=== PATIENT | female | born 1950 | race Caucasian/White ===

== ENCOUNTER 2019-07-31 09:30 | Outpatient (CLI) | payer MEDICARE, SELFPAY ==
--- NOTE | ~2019-07-31 | MM_ITS ---
EXAMINATION: MM screening [facility] BI w irene HISTORY: Screening mammogram TECHNIQUE: Craniocaudal and mediolateral oblique 3-D tomosynthesis images were obtained and synthetic 2-D images were generated. CAD analysis was submitted and interpreted. COMPARISON: Comparison to multiple prior studies sequentially, with oldest reviewed study dated 05/2014. BREAST PARENCHYMAL COMPOSITION: There are scattered areas of fibroglandular density. FINDINGS: There is no evidence of suspicious mass, calcification, or architectural distortion to sugg est malignancy in either breast. There has been no suspicious interval change. IMPRESSION: 1. No mammographic evidence of malignancy. 2. Recommend routine screening mammography in one year. BI-RADS Category 1: Negative Reviewed, dictated and finalized at location A.
== END 2019-07-31 09:31 | disposition home or self-care (01) ==
PROVIDERS: PCP Family Medicine; Visit Provider Family Medicine
DX: Z12.31 Encounter for screening mammogram for malignant neoplasm of breast (principal)
CPT/HCPCS: 77063; 77067

== ENCOUNTER 2020-06-10 07:45 | Outpatient (CLI) | payer MEDICARE, SELFPAY ==
[2020-06-10 08:19] LABS: Alanine Aminotransferase 16 U/L (4-35); Albumin Level 4.2 g/dL (3.5-5.1); Alkaline Phosphatase 56 U/L (38-126); Anion Gap 4 mmol/L (8-16); Aspartate Amino Transferase 26 U/L (14-36); Bilirubin,Total 0.6 mg/dL (0.2-1.3); Blood Urea Nitrogen 16 mg/dL (7-17); Calcium 9.1 mg/dL (8.4-10.2); Carbon Dioxide 29 mmol/L (22-30); Chloride 106 mmol/L (98-107); Cholesterol 201 mg/dL (0-200); Estimated Glomerular Filt Rate > 60; Glucose 98 mg/dL (65-105); HDL Direct 80 mg/dL; Potassium 4.1 mmol/L (3.4-5.0); Sodium 139 mmol/L (137-145); Triglycerides 107 mg/dL (<150)
[2020-06-10 08:30] LABS: LDL Cholesterol Direct 97 mg/dL
== END 2020-06-10 07:46 | disposition home or self-care (01) ==
PROVIDERS: PCP Physician Assistant; Visit Provider Physician Assistant
DX: I10 Essential (primary) hypertension (principal); Z00.00 Encounter for general adult medical examination without abnormal findings
CPT/HCPCS: 36415; 80053; 80061; 82607; 82746; 84443

== ENCOUNTER 2020-08-13 08:42 | Outpatient (CLI) | payer MEDICARE, SELFPAY ==
--- NOTE | ~2020-08-13 | MM_ITS ---
EXAMINATION: MM screening [facility] BI w irene HISTORY: Screening TECHNIQUE: Craniocaudal and mediolateral oblique 3-D tomosynthesis images were obtained and synthetic 2-D images were generated. CAD analysis was submitted and interpreted. COMPARISON: No prior mammogram is available for comparison at this institution. BREAST PARENCHYMAL COMPOSITION: There are scattered areas of fibroglandular density. FINDINGS: There is no evidence of suspicious mass, calcification, or architectural distortion to sugg est malignancy in either breast. There has been no suspicious interval change. IMPRESSION: 1. No mammographic evidence of malignancy. 2. Recommend routine screening mammography in one year. BI-RADS Category 1: Negative Reviewed, dictated and finalized at location A.
--- NOTE | ~2020-08-13 | DEXA_ITS ---
Bone Density Report Name: Nicol Lee Age: 70 Sex: Female Ethnicity: White Date of : 1950 Indication: osteopenia; height loss; Referring Provider: AFSANEH DAVENPORT Study: Bone densitometry was performed. Exam Date: August 13, 2020 Accession number: [id number] Bone Density: Region BMD T-score Z-score Classification AP Spine (L1-L4) 0.837 -1.9 0.2 Osteopenia Femoral Neck (Left) 0.693 -1.4 0.4 Osteopenia Total Hip (Left) 0.832 -0.9 0.6 Normal Total Hip Bilateral Avg 0.864 -0.6 0.9 Normal Femoral Neck (Right) 0.761 -0.8 1.0 Normal Total Hip (Right) 0.895 -0.4 1.1 Normal World Health Organization criteria for BMD impression classify patients as: Normal (T-score at or above -1.0), Osteopenia (T-score between -1.0 and -2.5), or Osteoporosis (T-score at or below -2.5). 10-year Fracture Risk(1): Major Osteoporotic Fracture 9.5% Hip Fracture 1.2% Reported Risk Factors: [place] (), Neck BMD=0.693, BMI=27.5 (1) FRAX(R) Version 3.08. Fracture probability calculated for an untreated patient. Fracture probability may be lower if the patient has received treatment. Previous Exams: Region Exam Age BMD T-score BMD Change BMD Change Date g/cm2 vs Baseline vs Previous AP Spine(L1-L4) 08/13/2020 70 0.837 -1.9 -0.072(-7.9%)# -0.002(-0.2%)# 07/17/2017 67 0.839 -1.9 -0.070(-7.7%)# -0.031(-3.6%)* 09/21/2014 64 0.870 -1.6 -0.039(-4.3%)# 0.003(0.3%)# 01/05/2012 61 0.867 -1.6 -0.041(-4.6%)# 0.002(0.3%)# 11/19/2009 59 0.865 -1.7 -0.044(-4.8%)* 0.018(2.1%) 11/14/2007 57 0.847 -1.8 -0.062(-6.8%)* -0.040(-4.5%)* 06/05/2005 55 0.887 -1.5 -0.021(-2.4%) -0.021(-2.4%) 08/01/2002 52 0.909 -1.3 Total Hip(Left) 08/13/2020 70 0.832 -0.9 -0.015(-1.8%)# -0.024(-2.8%)# 07/17/2017 67 0.856 -0.7 0.009(1.0%)# 0.018(2.1%) 09/21/2014 64 0.838 -0.8 -0.009(-1.1%)# -0.030(-3.5%)# 01/05/2012 61 0.869 -0.6 0.021(2.5%)# 0.042(5.0%)# 11/19/2009 59 0.827 -0.9 -0.020(-2.4%) 0.007(0.9%) 11/14/2007 57 0.820 -1.0 -0.027(-3.2%) -0.008(-1.0%) 06/05/2005 55 0.828 -0.9 -0.019(-2.2%) -0.019(-2.2%) 08/01/2002 52 0.847 -0.8 Total Hip(Right) 08/13/2020 70 0.895 -0.4 0.052(6.2%)# 0.024(2.8%)# 07/17/2017 67 0.871 -0.6 0.028(3.3%)# 0.016(1.9%) 09/21/2014 64 0.855 -0.7 0.012(1.4%)# 0.010(1.2%)# 01/05/2012 61 0.845 -0.8 0.002(0.2%)# -0.017(-1.9%)# 11/19/2009 59 0.861 -0.7 0.018(2.2%) 0.005(0.5%) 11/14/2007 57 0.857 -0.7 0.014(1.6%) 0.015(1.8%) 06/05/2005 55 0.842 -0.8 -0.001(-0.2%) -0.001(-0.
== END 2020-08-13 08:43 | disposition home or self-care (01) ==
PROVIDERS: PCP Physician Assistant; Visit Provider Obstetrics & Gynecology
DX: Z12.31 Encounter for screening mammogram for malignant neoplasm of breast (principal); Z78.0 Asymptomatic menopausal state; M85.89 Other specified disorders of bone density and structure, multiple sites
CPT/HCPCS: 77063; 77067; 77080

== ENCOUNTER 2020-08-19 11:00 | Outpatient (CLI) | payer MEDICARE, SELFPAY | END 2020-08-19 11:01 | disposition home or self-care (01) | PROVIDERS: PCP Physician Assistant; Visit Provider Obstetrics & Gynecology | DX: Z78.0 Asymptomatic menopausal state (principal); M85.89 Other specified disorders of bone density and structure, multiple sites | CPT/HCPCS: 36415; 82306 ==

== ENCOUNTER 2020-12-04 11:45 | Emergency (ER) | payer MEDICARE, SELFPAY ==
[2020-12-04 11:50] VITALS: BP 174/93; PULSE 78; RESP 18; TEMP 36.9; O2SAT 98
--- NOTE | 2020-12-04 12:09 | ED.SKABFB ---
HPI - Skin/Abscess/Foreign Bdy General Chief complaint: Skin/Abscess/Foreign Body Stated complaint: multiple insect stings Source: patient and family Mode of arrival: ambulatory Limitations: no limitations History of Present Illness HPI narrative: this is a 70-year-old female that presents with multiple hornet stings to her lower extremities, currently no throat irritation or throat closing, no shortness of breath no audible wheezing no nausea or vomiting no abdominal pain no fever chills. Patient cut stopping by hornets lower extremities [id number] ago has never had an allergic anaphylactic reaction. Patient did take Benadryl [id number] prior to arrival. complaint: rash Onset (ago): hour(s) Location: LLE and RLE Severity: moderate Quality: burning Related Data Home Medications Medication Instructions Recorded Confirmed calcium carbonate 500 mg calcium 2,000 mg PO DAILY 02/11/19 12/04/20 (1,250 mg) tablet omega 3,6,9 combination no.7 92 mg 2,060 mg PO DAILY 02/11/19 12/04/20 (43 mg-22 [id number]) chew tablet turmeric root extract 500 mg 1,950 mg PO BID 02/11/19 12/04/20 capsule cholecalciferol (vitamin D3) 125 5,000 unit PO 3XW cap 06/01/20 12/04/20 mcg (5,000 unit) capsule vitamin E (dl, acetate) 180 mg 400 unit PO DAILY 06/01/20 12/04/20 (400 unit) capsule Allergies Allergy/AdvReac Type Severity Reaction Status Date / Time Sulfa (Sulfonamide Allergy Severe Rash Verified 12/04/20 12:03 Antibiotics) lisinopril AdvReac Severe Rash Verified 12/04/20 12:03 Review of Systems Review of Systems: All systems reviewed & are unremarkable except as noted in HPI and below PMFSH Past Medical History Medical History Hypertension Osteoarthritis Osteoarthritis of left knee Tear of lateral meniscus of left knee Surgical History Surgical History History of tonsillectomy Family History Family History Grandparent Diabetes mellitus Sibling Family history of osteoporosis Family history of drug dependence Family history of alcoholism Family history of lupus erythematosus Patient's brother is Hypertension Patient's sister is in good health Father Family history of congestive heart failure Family history of cardiovascular disease, Onset Age: 66 Hypertension Mother Family history of congestive heart failure Family history of cardiovascular disease Diabetes mellitus Hypertension Patient's mother is in good health Family history of arthritis Social History Social History Smoking status: Former smoker Second hand tobacco smoke exposure: No Smoking end date: 03/26/81 Alcohol intake: current Alcohol use details: Occasional. Substance use: never Substance use type: does not use Gender identity (if verbalized by the patient): Female Exam Const: General: no acute distress and alert Orientation/consciousness: patient oriented x3 HENMT: Head: normal to inspection Eyes: Conjunctivae: conjunctivae normal Pupils: Equal, round and reactive pupils present EOM: EOMs intact bilaterally Direct Ophthalmoscopy: no photophobia Neck: Neck: normal visual inspection, no lymphadenopathy and no meningeal signs Chest: Chest palpation & inspection: normal inspection of the chest Resp: Effort & Inspection: normal respiratory effort Cardio: Rate: regular rate Rhythm: regular rhythm GI: Auscultation: normal bowel sounds : General: Yes no CVA tenderness Back/Spine/Pelvis: Back: no CVA tenderness Skin: Other: Multiple areas and lower extremities with some area of erythema with a central punctate staining lesion itchy and tender to palpation Neuro: General: patient oriented x3, moves all extremities and no mening
[2020-12-04] MEDS: methylPREDNISolone ACETATE 40 MG/ML VIAL 80 MG IM (12:15)
[2020-12-04 12:35] VITALS: BP 155/68; PULSE 64; RESP 16; TEMP 36.7; O2SAT 98
== END 2020-12-04 12:35 | disposition home or self-care (01) ==
PROVIDERS: Emergency Provider Emergency Medicine
DX: S80.869A Insect bite (nonvenomous), unspecified lower leg, initial encounter (principal); T78.40XA Allergy, unspecified, initial encounter; W57.XXXA Bitten or stung by nonvenomous insect and other nonvenomous arthropods, initial encounter
CPT/HCPCS: 96372; 99283; J1030

== ENCOUNTER 2021-07-01 07:22 | Outpatient (CLI) | payer MEDICARE, SELFPAY ==
--- NOTE | ~2021-07-01 | XR_ITS ---
EXAMINATION: XR hip RT 2V w AP pelvis DATE: 07/01/2021 07:56 INDICATION: Right hip pain. TECHNIQUE: An anteroposterior view of the pelvis and 2 views of right hip were obtained. COMPARISON: Pelvis and left hip radiographs 02/18/2019 FINDINGS: Bone alignment is normal. No fracture. The hip joint spaces are normal. IMPRESSION: 1. Normal hips. Reviewed, dictated and finalized at location A. IMPRESSION: 1. Normal hips.
[2021-07-01 07:44] LABS: Basophils Absolute Auto 0.1 K/mm3 (0.0-0.1); Basophils Percent Auto 0.9 % (0.2-1.2); Eosinophils Absolute Auto 0.1 K/mm3 (0-0.3); Eosinophils Percent Auto 1.5 % (0-4.4); Hematocrit 39.6 % (37.0-47.0); Hemoglobin 12.5 g/dL (12.0-15.0); Immature Granulocyte Absolute 0.05 K/mm3 (0.00-0.031); Immature Granulocyte Percent A 0.6 % (0-0.5); Lymphocytes Absolute Auto 2.65 K/mm3 (0.9-3.2); Mean Corpuscular HGB Conc 31.6 g/dl (32-36); Mean Corpuscular Hemoglobin 27.8 pg (26-34); Mean Corpuscular Volume 88.2 fl (80-100); Mean Platelet Volume 8.5 fl (7.4-10.4); Monocytes Absolute Auto 0.7 K/mm3 (0.1-0.6); Neutrophils Absolute Auto 4.4 K/mm3 (1.3-6.7); Platelet Count Result 399 k/mm3 (150-375); Red Blood Count 4.49 M/mm3 (4.2-5.4); Red Cell Distribution Width 14.3 % (11.5-14.5)
[2021-07-01 07:58] LABS: Alanine Aminotransferase 16 U/L (4-35); Albumin Level 4.2 g/dL (3.5-5.1); Alkaline Phosphatase 50 U/L (38-126); Anion Gap 4 mmol/L (8-16); Aspartate Amino Transferase 23 U/L (14-36); Bilirubin,Total 0.6 mg/dL (0.2-1.3); Blood Urea Nitrogen 19 mg/dL (7-17); Calcium 8.6 mg/dL (8.4-10.2); Carbon Dioxide 27 mmol/L (22-30); Chloride 105 mmol/L (98-107); Cholesterol 229 mg/dL (0-200); Estimated Glomerular Filt Rate > 60; Glucose 96 mg/dL (65-110); HDL Direct 103 mg/dL; Potassium 3.9 mmol/L (3.4-5.0); Sodium 136 mmol/L (137-145); Triglycerides 94 mg/dL (<150)
[2021-07-01 08:09] LABS: LDL Cholesterol Direct 72 mg/dL
[2021-07-01 08:23] LABS: Vitamin D 25 Hydroxy 52.8 ng/mL
[2021-07-01 08:49] LABS: Vitamin B12 > 1000.0 pg/mL (239-931)
== END 2021-07-01 07:23 | disposition home or self-care (01) ==
PROVIDERS: PCP Family Medicine; Visit Provider Family Medicine
DX: E53.8 Deficiency of other specified B group vitamins (principal); E55.9 Vitamin D deficiency, unspecified; I10 Essential (primary) hypertension; E78.2 Mixed hyperlipidemia; Z00.00 Encounter for general adult medical examination without abnormal findings; R53.83 Other fatigue
CPT/HCPCS: 36415; 73502; 80053; 80061; 82306; 82607; 84443; 85025

== ENCOUNTER 2021-07-27 07:27 | Outpatient (CLI) | payer MEDICARE, SELFPAY ==
--- NOTE | ~2021-07-27 | CT_ITS ---
EXAMINATION: CT abdomen pelvis w con INDICATION: Right lower quadrant pain TECHNIQUE: Computed tomographic images of the abdomen and pelvis were obtained after the administrati on of 100 cc of Omnipaque 350 intravenous contrast. The dose-length product (DLP) was 497.73 mGy-cm. Automated exposure control and iterative reconstruction technique were employed. COMPARISON: None available FINDINGS: There is a large hiatal hernia with organoaxial volvulus. Mild atelectasis is noted in the visualized lung bases. The heart size is normal. The liver, spleen, pancreas, gallbladder, and adrena l glands are normal. The right kidney is unremarkable. There is a subtle area of decreased perfusion in the left mid kidney. The appendix is normal. No pathologically enlarged abdominal or pelvic lymph nodes are identified. There is no free intraperitoneal gas or evidence of bowel obstruction. Colonic diverticulosis is present without evidence of diverticulitis. There is mild lumbar spondylosis. A sma ll fat-containing umbilical hernia is noted. IMPRESSION: 1. No CT correlate for the patient's symptoms. 2. Large hiatal hernia with organoaxial volvulus. 3. Focal area of diffusion in the left mid kidney which could reflect scarring versus possible infect ion. Correlation with urinalysis is recommended. Reviewed, dictated and finalized at location A. IMPRESSION: 1. No CT correlate for the patient's symptoms. 2. Large hiatal hernia with organoaxial volvulus. 3. Focal area of diffusion in the left mid kidney which could reflect scarring versus possible infection. Correlation with urinalysis is recommended.
== END 2021-07-27 07:28 | disposition home or self-care (01) ==
PROVIDERS: PCP Family Medicine; Visit Provider Physician Assistant Medical
DX: R10.31 Right lower quadrant pain (principal); K44.9 Diaphragmatic hernia without obstruction or gangrene
CPT/HCPCS: 74177; Q9967

== ENCOUNTER 2021-07-30 12:55 | Outpatient (CLI) | payer MEDICARE, SELFPAY ==
[2021-07-30 14:02] LABS: Appearance Urine Cloudy (Clear); Bilirubin Urine Negative (Negative); Color Urine Yellow (Yellow); Glucose Urine UA Negative (Negative); Ketones Urine 1+ mg/dL (Negative); Leukocyte Esterase Ur Negative LEU/UL (NEGATIVE); Nitrate Urine Negative (Negative); Protein Urine Negative (Negative); Urobilinogen Urine 0.2 mg/dL (<2.0)
[2021-07-30 14:04] LABS: Mucus Urine Rare /lpf; RBC Urine 0-2 /hpf (0-2); Squamous Epithelial Cell Urine Rare /hpf (Few); WBC Urine 0-3 /hpf (0-3)
[2021-07-30 14:18] LABS: Add Urine Microscopic? YES; Blood Urine Trace-Intact (Negative)
== END 2021-07-30 12:56 | disposition home or self-care (01) ==
LOC: ANHLAB 12:59
PROVIDERS: PCP Family Medicine; Visit Provider Physician Assistant Medical
DX: R39.9 Unspecified symptoms and signs involving the genitourinary system (principal)
CPT/HCPCS: 81001; 87086

== ENCOUNTER 2021-09-22 08:48 | Outpatient (CLI) | payer MEDICARE, SELFPAY ==
--- NOTE | ~2021-09-22 | XR_ITS ---
EXAMINATION: XR UGIAC w barium swallow DATE: 09/22/2021 09:27 INDICATION: Diaphragmatic hernia without obstruction. TECHNIQUE: Thick barium contrast with gas effervescent crystals were administered orally. Fluoroscop ic images of the esophagus, stomach, and proximal duodenum were obtained in various projections. The reafter, overhead images of the abdomen were performed. 0.2 minutes of fluroscopy. DAP 6.5. FINDINGS: No prior studies for comparison. The esophagus is normal in caliber, without mucosal lesions or strictures. There is normal esophagea l peristalsis. There is a large hiatal hernia with organoaxial volvulus. No gastroesophageal reflux witnessed during the course of the study. The gastric folds are normal. The proximal duodenum is also normal in appearance. IMPRESSION: 1. Large hiatal hernia with organoaxial volvulus. Reviewed, dictated and finalized at location A.
== END 2021-09-22 08:49 | disposition home or self-care (01) ==
PROVIDERS: PCP Family Medicine; Visit Provider Internal Medicine Gastroenterology
DX: K44.9 Diaphragmatic hernia without obstruction or gangrene (principal)
CPT/HCPCS: 74246

== ENCOUNTER 2021-10-10 00:26 | Day surgery (SDC) | payer MEDICARE, SELFPAY ==
[2021-09-29 10:16] VITALS: BMI 29.1
--- NOTE | 2021-10-07 13:38 | PM.HPGS ---
History of Present Illness History of Present Illness Consent: Risks, benefits, and alternatives have been discussed and questions answered. Patient agrees to proceed with procedure. Chief complaint: Hiatal Hernia Narrative: Nicol Lee is a 71 year old female who had a CT scan of the abdomen and pelvis.? This showed a large hiatal hernia with what appeared to be organaxial volvulus.? surprisingly she has no symptoms.? I personally reviewed her CT scan and jared a diagram for her.? I showed her that it appears that about 1/2 of her stomach is above the diaphragm.? The radiologist is concerned that there was rotation, or volvulus of the herniated stomach.? Review of Systems Review of Systems: All systems reviewed & are unremarkable except as noted in HPI and below PMFSH Past Medical History Medical History Groin pain, chronic, right Hiatal hernia Hypertension Osteoarthritis Osteoarthritis of left knee Tear of lateral meniscus of left knee Urinary symptom or sign Surgical History Surgical History History of tonsillectomy Family History Family History Grandparent Diabetes mellitus Sibling Family history of osteoporosis Family history of drug dependence Family history of alcoholism Family history of lupus erythematosus Patient's brother is Hypertension Patient's sister is in good health Father Family history of congestive heart failure Family history of cardiovascular disease, Onset Age: 66 Hypertension Mother Family history of congestive heart failure Family history of cardiovascular disease Diabetes mellitus Hypertension Patient's mother is in good health Family history of arthritis Social History Social History Second hand tobacco smoke exposure: No Smoking end date: 03/26/81 Alcohol intake: current Drinks per week: 6 Alcohol use details: Occasional. Substance use: never Substance use type: does not use Living arrangements: with family Gender identity (if verbalized by the patient): Female Spiritual care concerns: No Meds Home Medications and Allergies Home Medications Medication Instructions Recorded Confirmed Type calcium carbonate 500 mg calcium 2,000 mg PO DAILY 02/11/19 09/29/21 History (1,250 mg) tablet (Calcium 500) omega 3,6,9 combination no.7 92 mg 2,060 mg PO DAILY 02/11/19 09/29/21 History (43 mg-22 [id number]) chew tablet turmeric root extract 500 mg 1,950 mg PO BID 02/11/19 09/29/21 History capsule cholecalciferol (vitamin D3) 125 5,000 unit PO 3XW 06/01/20 09/29/21 History mcg (5,000 unit) capsule vitamin E (dl, acetate) 180 mg 400 unit PO DAILY 06/01/20 09/29/21 History (400 unit) capsule ascorbate calcium (vitamin C) 500 500 mg PO DAILY 02/07/21 09/29/21 History mg tablet aspirin 81 mg tablet,delayed 81 mg PO DAILY 02/07/21 09/29/21 History release glucosamine sulf dipotas 750 1,200 tablet PO 2XD 02/07/21 09/29/21 History mg-Boswellia tae extract 50 mg tablet lactobacillus combination no.9 4 4,000 mmu cells PO DAILY 02/07/21 09/29/21 History billion cell capsule (Adult 50 Plus Probiotic) mecobalamin (vitamin B12) 5,000 5,000 mcg PO DAILY 02/07/21 09/29/21 History mcg lozenge losartan 100 mg tablet 100 mg PO DAILY #90 tabs 06/13/21 09/29/21 Rx amlodipine 10 mg tablet 10 mg PO DAILY #30 tabs 07/14/21 09/29/21 Rx Allergies Allergy/AdvReac Type Severity Reaction Status Date / Time Sulfa (Sulfonamide Allergy Severe Rash Verified 10/10/21 06:24 Antibiotics) lisinopril AdvReac Severe Rash Verified 10/10/21 06:24 Exam Const: General: alert Orientation/consciousness: patient oriented x3 Resp: Auscultation: clear to auscultation bilaterally Cardio:
[2021-10-10 06:25] VITALS: BP 160/77; PULSE 70; RESP 16; TEMP 36.9; O2SAT 100; BMI 28.0
[2021-10-10] MEDS: LACTATED RINGERS 1,000 ML 150 ML IV CONT (06:28)
--- NOTE | 2021-10-10 07:14 | WPDANESEPPF ---
Anes - Initial Pre Proc Eval Procedure: Operation Date: 10/10/21 07:30 Proposed Procedures p Esophagogastroduodenoscopy - Luis De La Rosa MD Date/Time: 10/10/21 07:14 Surgeon: Luis De La Rosa MD Pre Op Diagnosis: Hiatal Hernia Patient Data Age: 71 Gender: F Height: 1.63 m Weight: 74 kg Last Vital Signs Temp 98.4 F 10/10/21 06:25 Pulse 70 10/10/21 06:25 Resp 16 10/10/21 06:25 BP 160/77 H 10/10/21 06:25 Pulse Ox 100 10/10/21 06:25 O2 Del Method Room Air 10/10/21 06:25 Allergies Allergy/AdvReac Type Severity Reaction Status Date / Time Sulfa (Sulfonamide Allergy Severe Rash Verified 10/10/21 06:24 Antibiotics) lisinopril AdvReac Severe Rash Verified 10/10/21 06:24 Home Medications Medication Instructions Recorded Confirmed Type calcium carbonate 500 mg calcium 2,000 mg PO DAILY 02/11/19 09/29/21 History (1,250 mg) tablet (Calcium 500) omega 3,6,9 combination no.7 92 mg 2,060 mg PO DAILY 02/11/19 09/29/21 History (43 mg-22 [id number]) chew tablet turmeric root extract 500 mg 1,950 mg PO BID 02/11/19 09/29/21 History capsule cholecalciferol (vitamin D3) 125 5,000 unit PO 3XW 06/01/20 09/29/21 History mcg (5,000 unit) capsule vitamin E (dl, acetate) 180 mg 400 unit PO DAILY 06/01/20 09/29/21 History (400 unit) capsule ascorbate calcium (vitamin C) 500 500 mg PO DAILY 02/07/21 09/29/21 History mg tablet aspirin 81 mg tablet,delayed 81 mg PO DAILY 02/07/21 09/29/21 History release glucosamine sulf dipotas 750 1,200 tablet PO 2XD 02/07/21 09/29/21 History mg-Boswellia tae extract 50 mg tablet lactobacillus combination no.9 4 4,000 mmu cells PO DAILY 02/07/21 09/29/21 History billion cell capsule (Adult 50 Plus Probiotic) mecobalamin (vitamin B12) 5,000 5,000 mcg PO DAILY 02/07/21 09/29/21 History mcg lozenge losartan 100 mg tablet 100 mg PO DAILY #90 tabs 06/13/21 09/29/21 Rx amlodipine 10 mg tablet 10 mg PO DAILY #30 tabs 07/14/21 09/29/21 Rx Patient hx anesthesia problems: none Family hx anesthesia problems: none Results Review: All pre-operative results and documents have been reviewed as part of the pre-operative evaluation. [facility] Past Medical History Medical History Groin pain, chronic, right Hiatal hernia Hypertension Osteoarthritis Osteoarthritis of left knee Tear of lateral meniscus of left knee Urinary symptom or sign Surgical History Surgical History History of tonsillectomy Family History Family History Grandparent Diabetes mellitus Sibling Family history of osteoporosis Family history of drug dependence Family history of alcoholism Family history of lupus erythematosus Patient's brother is Hypertension Patient's sister is in good health Father Family history of congestive heart failure Family history of cardiovascular disease, Onset Age: 66 Hypertension Mother Family history of congestive heart failure Family history of cardiovascular disease Diabetes mellitus Hypertension Patient's mother is in good health Family history of arthritis Social History Social History Second hand tobacco smoke exposure: No Smoking end date: 03/26/81 Alcohol intake: current Drinks per week: 6 Alcohol use details: Occasional. Substance use: never Substance use type: does not use Living arrangements: with family Gender identity (if verbalized by the patient): Female Spiritual care concerns: No Anes - Eval Final PreProcedure Day of Procedure 10/10/21 07:14 Patient weight: normal Heart: regular rate and rhythm Lungs: clear to auscultation Airway: Mallampati scale class II Neurological: alert and oriented Last oral intake: >/= 8 hours
[2021-10-10 07:41] VITALS: BP 113/76; PULSE 74; RESP 25; O2SAT 96
[2021-10-10 07:51] VITALS: BP 131/83; PULSE 66; RESP 18; O2SAT 98
[2021-10-10 08:01] VITALS: BP 140/89; PULSE 77; RESP 18; O2SAT 100
== END 2021-10-10 08:14 | disposition home or self-care (01) ==
PROVIDERS: PCP Family Medicine; Visit Provider Internal Medicine Gastroenterology
PROC: 0DJ08ZZ Inspection of Upper Intestinal Tract, Via Natural or Artificial Opening Endoscopic (ICD-10-PCS; CPT 43235; principal; 2021-10-10 07:30)
DX: K21.00 Gastro-esophageal reflux disease with esophagitis, without bleeding (principal); K44.9 Diaphragmatic hernia without obstruction or gangrene; Z79.82 Long term (current) use of aspirin; I10 Essential (primary) hypertension; M19.90 Unspecified osteoarthritis, unspecified site
CPT/HCPCS: 43239; 87081; 88305; J2704; J7120

== ENCOUNTER 2021-12-16 08:11 | Outpatient (CLI) | payer MEDICARE, SELFPAY ==
--- NOTE | ~2021-12-16 | MM_ITS ---
EXAMINATION: MM screening [facility] BI w irene HISTORY: Screening mammogram TECHNIQUE: Craniocaudal and mediolateral oblique 3-D tomosynthesis images were obtained and synthetic 2-D images were generated. CAD analysis was submitted and interpreted. COMPARISON: 08/13/2020, 07/31/2019, 06/13/2018 BREAST PARENCHYMAL COMPOSITION: There are scattered areas of fibroglandular density. FINDINGS: There is no suspicious mass, calcification, or architectural distortion to suggest malignan cy in either breast. There has been no suspicious interval change. IMPRESSION: 1. No mammographic evidence of malignancy. 2. Recommend routine screening mammography in one year. BI-RADS Category 1: Negative Reviewed, dictated and finalized at location A.
== END 2021-12-16 08:12 | disposition home or self-care (01) ==
LOC: ANHIMG 08:14
PROVIDERS: PCP Family Medicine; Visit Provider Obstetrics & Gynecology
DX: Z12.31 Encounter for screening mammogram for malignant neoplasm of breast (principal)
CPT/HCPCS: 77063; 77067

== ENCOUNTER 2021-12-30 09:35 | Outpatient (CLI) | payer MEDICARE, SELFPAY ==
--- NOTE | ~2021-12-30 | XR_ITS ---
EXAMINATION: XR chest 2V DATE: 12/30/2021 11:15 INDICATION: Hypertension. Preop. TECHNIQUE: Frontal and lateral views of the chest were obtained. COMPARISON: CT abdomen and pelvis 07/27/2021 FINDINGS: A calcified right lung nodule is consistent with old granulomatous disease. There is mild s carring at left lung apex. No pleural effusion or pneumothorax. The heart size is normal. There is a large hiatal hernia. There is mild chronic anterior wedging of multiple vertebral bodies. IMPRESSION: 1. Large hiatal hernia. Reviewed, dictated and finalized at location B. IMPRESSION: 1. Large hiatal hernia.
--- NOTE | 2021-12-30 10:52 | ECG_ITS ---
Measurements Intervals Alexis Rate: 61 P: 7 IL: 161 QRS: -8 QRSD: 78 T: 9 QT: 401 QTc: 406 Interpretive Statements BASELINE ARTIFACT/REDUCED QUALITY ECG SINUS RHYTHM MODERATE VOLTAGE CRITERIA FOR LVH, CONSIDER NORMAL VARIANT [MEETS CRITERIA IN ONE OF: R(aVL), S(V1), R(V5), R(V5/V6)+S(V1)] NO PREVIOUS ECG AVAILABLE FOR COMPARISON Electronically Signed On 12-30-2021 13:49:42 CDT by Tulio Lau M.D.
[2021-12-30 11:10] LABS: Basophils Absolute Auto 0.1 K/mm3 (0.0-0.1); Basophils Percent Auto 1.1 % (0.2-1.2); Eosinophils Absolute Auto 0.2 K/mm3 (0-0.3); Eosinophils Percent Auto 3.4 % (0-4.4); Hematocrit 37.2 % (37.0-47.0); Hemoglobin 11.5 g/dL (12.0-15.0); Immature Granulocyte Absolute 0.01 K/mm3 (0.00-0.031); Immature Granulocyte Percent A 0.2 % (0-0.5); Lymphocytes Absolute Auto 1.94 K/mm3 (0.9-3.2); Lymphocytes Percent Auto 44.5 % (18.3-44.2); Mean Corpuscular HGB Conc 30.9 g/dl (32-36); Mean Corpuscular Hemoglobin 25.3 pg (26-34); Mean Corpuscular Volume 81.8 fl (80-100); Mean Platelet Volume 8.8 fl (7.4-10.4); Monocytes Absolute Auto 0.4 K/mm3 (0.1-0.6); Monocytes Percent Auto 8.5 % (2.6-8.5); Neutrophils Absolute Auto 1.8 K/mm3 (1.3-6.7); Neutrophils Percent Auto 42.3 % (45.5-73.1); Platelet Count Result 318 k/mm3 (150-375); Red Blood Count 4.55 M/mm3 (4.2-5.4); Red Cell Distribution Width 17.3 % (11.5-14.5); White Blood Count 4.4 K/mm3 (4.5-10.0)
[2021-12-30 11:28] LABS: Anion Gap 11 mmol/L (8-16); Blood Urea Nitrogen 15 mg/dL (7-17); Calcium 9.5 mg/dL (8.4-10.2); Carbon Dioxide 26 mmol/L (22-30); Chloride 103 mmol/L (98-107); Estimated Glomerular Filt Rate > 60; Glucose 96 mg/dL (65-110); Potassium 4.6 mmol/L (3.4-5.0); Sodium 140 mmol/L (137-145)
== END 2021-12-30 09:36 | disposition home or self-care (01) ==
LOC: ANHSURGERY 09:43
PROVIDERS: PCP Family Medicine; Visit Provider Surgery
DX: K44.9 Diaphragmatic hernia without obstruction or gangrene (principal)
CPT/HCPCS: 36415; 71046; 80048; 85025; 86850; 86900; 86901; 93005

== ENCOUNTER 2022-01-12 16:01 | Inpatient (IN) | payer MEDICARE, SELFPAY ==
[2021-12-30 09:57] VITALS: BMI 28.3
--- NOTE | 2021-12-30 10:29 | PC.NURSE ---
Report to the Outpatient Waiting Room, entrance under the green pavilion located off [facility], at time __0600 on date _01/11/22 . OR Time: __0800 . Time changes happen often and if your time is changed the preop area will call you the afternoon before. - You and your visitor will be asked to self-screen and do not enter if you have any COVID symptoms. - We encourage only one visitor and NO visitors under age 16 are allowed at this time. Your visitor will receive communication by the phone number that is given day of service. - The patient visitor is requested to social distance or may leave the building when not with patient due to restrictions. - A mask is required within the hospital. Patients may have clear liquids (water, carbonated beverages, clear teas, apple juice) until 3 hours prior to surgery with a maximum of 20 ounces. - No food from midnight until time of surgery - Infants may have breast milk until 4 hours before surgery, infant formula 6 hours prior to surgery. - Children will be allowed to drink immediately following surgery. If applicable, please bring a bottle or sippy cup to assist with drinking. Juice, water, soda, and popsicles are readily available. For infants on formula, please bring formula the day of surgery. Pacifiers are allowed. Take the following medications with a SIP of water the morning of surgery: __AMLODIPINE Medications to discontinue per physician _PT STATES DR MUSTAFA INST. TO HOLD ASPIRIN,FISH OIL,CALCIUM,VIT.E,D3 7 DAYS PRE OP. ALL OTHER VITAMINS AND SUPPLEMENTS 3 DAY PRE OP Date to take last dose_ASPIRIN/VIT 01/03/22 ALL OTHER VIT /SUPP 01/07/22 HIBICLENS SHOWER MORNING OF SURGERY Please no make-up, nail lithuanian, hairspray, perfume, deodorant, or body powder the day of surgery. No jewelry (including any body piercings) or valuables the day of surgery, leave them at home. Please take a shower or bath the night before, or the morning of, surgery with an antibacterial soap. Wear comfortable, loose fitting clothing. Children are encouraged to wear pajamas. - Jewelry must be removed prior to entering the operating room. Rings and piercings that are not removed may be cut off. - The hospital will not accept responsibility for valuables. - Please leave all valuables, including medications, at home the day of surgery. If you are going home after surgery, a licensed hydraulic lift driver must drive you home. - NO public transportation without another adult. - We recommend that an adult stay with you for 24 hours following discharge. - We also recommend that you do not drive, make important decision, drink alcoholic beverages, or take any drugs that were not prescribed by your health care provider for at least 24 hours after your discharge time. Follow any additional instructions given to you from your surgeon. If you or anyone in your household have experienced Covid symptoms in the past week, please notify your surgeon or the nurse liaison at the phone number below for possible testing. VERBAL AND WRITTEN instructions given to __PATIENT and asked if any additional questions and then verbalized understanding. Patient advised to call surgeon office or pre surgery nurse liaison [phone] if any additional questions.
[2021-12-30 10:46] VITALS: BP 162/89; PULSE 58; RESP 18; TEMP 37.1; O2SAT 100
--- NOTE | 2022-01-10 11:27 | PM.IMHP ---
H&P: HPI History of Present Illness Date/Time: 01/10/22 11:27 Chief Complaint: Abdominal pain early satiety Narrative: patient is a 71-year-old woman with a large paraesophageal hiatal hernia. She does have some postprandial pain and has to eat small amounts. She had an EGD with Dr. De La Rosa and large hiatal hernia was found as well as nonerosive reflux disease. She also has early satiety. She is very worried about complications associated with the hiatal hernia as well. After thorough discussion with 2 different office visits, she is taken to surgery now for laparoscopic repair of paraesophageal hiatal hernia. Review of Systems Review of Systems: All systems reviewed & are unremarkable except as noted in HPI and below ( HPI and those items noted below) Constitutional: Constitutional: Denies chills and Denies fever(s) Cardiovascular: Cardiovascular: Denies chest pain, Denies diaphoresis, Denies dyspnea and Denies paroxysmal nocturnal dyspnea Respiratory: Respiratory: Denies chest congestion, Denies cough and Denies dyspnea Integumentary/Breasts: Skin/Breast: Denies lesions and Denies rash PMF Past Medical History Medical History Groin pain, chronic, right Hiatal hernia Hypertension Osteoarthritis Osteoarthritis of left knee Tear of lateral meniscus of left knee Urinary symptom or sign Surgical History Surgical History History of tonsillectomy Family History Family History Grandparent Diabetes mellitus Sibling Family history of osteoporosis Family history of drug dependence Family history of alcoholism Family history of lupus erythematosus Patient's brother is Hypertension Patient's sister is in good health Father Family history of congestive heart failure Family history of cardiovascular disease, Onset Age: 66 Hypertension Mother Family history of congestive heart failure Family history of cardiovascular disease Diabetes mellitus Hypertension Patient's mother is in good health Family history of arthritis Social History Social History Smoking packs per day: 1 Smoking cigarettes per day: 20.0 Years smoked: 5 Smoking pack-years: 5.00 Smoking status: Former smoker Tobacco type: cigarettes Second hand tobacco smoke exposure: No Smoking end date: 03/26/75 Alcohol intake: current Drinks per week: 6 Alcohol use details: Occasional. Substance use: never Substance use type: does not use Gender identity (if verbalized by the patient): Female Spiritual care concerns: No Meds Home Medications and Allergies Home Medications Medication Instructions Recorded Confirmed Type omega 3,6,9 combination no.7 92 mg 2,060 mg PO DAILY 02/11/19 12/30/21 History (43 mg-22 [id number]) chew tablet turmeric root extract 500 mg 1,950 mg PO BID 02/11/19 12/30/21 History capsule cholecalciferol (vitamin D3) 125 5,000 unit PO 3XW 06/01/20 12/30/21 History mcg (5,000 unit) capsule vitamin E (dl, acetate) 180 mg 400 unit PO DAILY 06/01/20 12/30/21 History (400 unit) capsule ascorbate calcium (vitamin C) 500 500 mg PO DAILY 02/07/21 12/30/21 History mg tablet aspirin 81 mg tablet,delayed 81 mg PO DAILY 02/07/21 12/30/21 History release glucosamine sulf dipotas 750 1,200 tablet PO 2XD 02/07/21 12/30/21 History mg-Boswellia tae extract 50 mg tablet lactobacillus combination no.9 4 4,000 mmu cells PO DAILY 02/07/21 12/30/21 History billion cell capsule (Adult 50 Plus Probiotic) mecobalamin (vitamin B12) 5,000 5,000 mcg PO DAILY 02/07/21 12/30/21 History mcg lozenge losartan 100 mg tablet 100 mg PO DAILY #90 tabs 06/13/21 12/30/21 Rx amlodipine 10 mg tablet 10 mg PO DAILY #30 tabs 07/14/21
[2022-01-11] VITALS (17 sets, daily range): BP systolic 105–158; BP diastolic 53–81; PULSE 56–110; RESP 12–22; TEMP 36–37.1; O2SAT 94–100
[2022-01-11] MEDS: ACETAMINOPHEN 500 MG TABLET 1000 MG PO (06:39)
[2022-01-11] MEDS: LACTATED RINGERS 1,000 ML 30 ML IV CONT ×2 (06:45→11:03)
[2022-01-11] MEDS: KETOROLAC 15 MG/ML VIAL (*BKC) IV PUSH (07:08)
--- NOTE | 2022-01-11 07:10 | WPDANESEPPF ---
Anes - Initial Pre Proc Eval Procedure: Operation Date: 01/11/22 07:30 Proposed Procedures p Laparoscopic Repair of Paraesophageal Hiatal Hernia - Ras Fontaine MD Date/Time: 01/11/22 07:10 Surgeon: Ras Fontaine MD Pre Op Diagnosis: Paraesophageal Hiatal Hernia Patient Data Age: 71 Gender: F Height: 1.64 m Weight: 75.4 kg Last Vital Signs Temp 98.8 F 01/11/22 07:04 Pulse 71 01/11/22 07:04 Resp 16 01/11/22 07:04 BP 158/80 H 01/11/22 07:04 Pulse Ox 100 01/11/22 07:04 O2 Del Method Room Air 01/11/22 07:04 Allergies Allergy/AdvReac Type Severity Reaction Status Date / Time Sulfa (Sulfonamide Allergy Severe Rash Verified 01/11/22 06:33 Antibiotics) lisinopril AdvReac Severe Rash Verified 01/11/22 06:33 Home Medications Medication Instructions Recorded Confirmed Type omega 3,6,9 combination no.7 92 mg 2,060 mg PO DAILY 02/11/19 01/11/22 History (43 mg-22 [id number]) chew tablet turmeric root extract 500 mg 1,950 mg PO BID 02/11/19 01/11/22 History capsule cholecalciferol (vitamin D3) 125 5,000 unit PO 3XW 06/01/20 01/11/22 History mcg (5,000 unit) capsule vitamin E (dl, acetate) 180 mg 400 unit PO DAILY 06/01/20 01/11/22 History (400 unit) capsule ascorbate calcium (vitamin C) 500 500 mg PO DAILY 02/07/21 01/11/22 History mg tablet aspirin 81 mg tablet,delayed 81 mg PO DAILY 02/07/21 01/11/22 History release glucosamine sulf dipotas 750 1,200 tablet PO 2XD 02/07/21 01/11/22 History mg-Boswellia tae extract 50 mg tablet lactobacillus combination no.9 4 4,000 mmu cells PO DAILY 02/07/21 01/11/22 History billion cell capsule (Adult 50 Plus Probiotic) mecobalamin (vitamin B12) 5,000 5,000 mcg PO DAILY 02/07/21 01/11/22 History mcg lozenge losartan 100 mg tablet 100 mg PO DAILY #90 tabs 06/13/21 01/11/22 Rx amlodipine 10 mg tablet 10 mg PO DAILY #30 tabs 07/14/21 01/11/22 Rx [id number] tablet 1 tablet PO BID 12/30/21 01/11/22 History Patient hx anesthesia problems: none Family hx anesthesia problems: none Results Review: All pre-operative results and documents have been reviewed as part of the pre-operative evaluation. [facility] Past Medical History Medical History Groin pain, chronic, right Hiatal hernia Hypertension Osteoarthritis Osteoarthritis of left knee Tear of lateral meniscus of left knee Urinary symptom or sign Surgical History Surgical History History of tonsillectomy Family History Family History Grandparent Diabetes mellitus Sibling Family history of osteoporosis Family history of drug dependence Family history of alcoholism Family history of lupus erythematosus Patient's brother is Hypertension Patient's sister is in good health Father Family history of congestive heart failure Family history of cardiovascular disease, Onset Age: 66 Hypertension Mother Family history of congestive heart failure Family history of cardiovascular disease Diabetes mellitus Hypertension Patient's mother is in good health Family history of arthritis Social History Social History Smoking packs per day: 1 Smoking cigarettes per day: 20.0 Years smoked: 5 Smoking pack-years: 5.00 Smoking status: Former smoker Tobacco type: cigarettes Second hand tobacco smoke exposure: No Smoking end date: 03/26/75 Alcohol intake: current Drinks per week: 6 Alcohol use details: Occasional. Substance use: never Substance use type: does not use Living arrangements: with family Gender identity (if verbalized by the patient): Female Spiritual care concerns: No Anes - Eval Final PreProcedure Day of Procedure 01/11/22 07:10 Patie
--- NOTE | 2022-01-11 07:19 | WPDHPUPDATE1 ---
History and Physical Update Update Date/Time: 01/11/22 07:19 History and Physical has been reviewed, including an updated exam of the patient. There are NO changes in the patient's condition. Risks, benefits, and alternatives have been discussed and questions answered. Patient agrees to proceed with procedure.
[2022-01-11] MEDS: ceFAZolin 2 GM/D5W 50 ML 2 GM/50 ML BAG IVPB (07:24)
[2022-01-11] MEDS: BUPIVACAINE/EPINEPHRINE 0.25% 50 ML VIAL INFILTRATE (08:13)
[2022-01-11] MEDS: fentaNYL CITRATE INJ (*CRX) 100 MCG/2 ML VIAL 25 MCG IV PUSH ×6 (11:17→11:58)
[2022-01-11] MEDS: LACTATED RINGERS 1,000 ML 100 ML IV CONT (14:03)
--- NOTE | 2022-01-11 17:25 | W.PM.PROC2 ---
Procedure Note - Detailed Date of Procedure 01/11/22 Pre-op Diagnosis Paraesophageal Hiatal Hernia Post-op Diagnosis Same Procedure Performed Laparoscopic repair paraesophageal hiatal hernia with Jacqueline fundoplication Surgeon Ras Fontaine MD [employer] Chiquita MCKAY Anesthesia General and Local (0.25% Marcaine with epinephrine) Indications Patient was noted by imaging as well as EGD to have a very large paraesophageal hiatal hernia with an element of volvulus. She has some obstructive symptoms as well as early satiety and postprandial pain. She also has reflux symptoms. After thorough discussion, she is taken to surgery now for repair of paraesophageal hiatal hernia. Findings This was a large paraesophageal hiatal hernia, 90% of the stomach was in the mediastinum. No other significant findings were noted. Description of Procedure Patient was taken to surgery and induced into general anesthesia. Murry catheter was placed and prep and drape of the entire abdomen was carried out. Local anesthetic was infiltrated in the midline above the umbilicus. A small incision was made. The varies needle was introduced. Intraperitoneal location was verified by saline drop technique. We insufflated CO2. The abdomen filled readily. The varies needle was removed. A 10 11 trocar was then placed. This was an optical trocar. The camera was positioned and we were clearly in the peritoneal cavity. I then made another incision just to the right side of the xiphoid below the right rib margin. I introduced the Pérez retractor and attempted to elevate the lateral segment of the left lobe of the liver with this. Unfortunately the lateral segment was quite thickened and redundant. While I could expose the hiatus, the anterior aspect of the lateral segment with then dropped down and preclude our visualization of the hiatus. When I moved the retractor more anteriorly, I was unable to expose the hiatus. I abandoned use of the Pérez retractor. We used the disposable liver retractor. I made an additional trocar opening using the same technique but this time a 12 trocar in the right lateral subcostal position. The I also made a 10 11 trocar placement in the left lateral subcostal position. I then elevated the lateral segment of the left lobe of the liver. I was able to use a Ray-Timothy sponge and double it back clipping it to the drape to keep the lateral segment of the left lobe of the liver out of our field with good visualization of the hiatus. Two other 10 11 ports were then placed on the right and left sides of the midline above the initial 10 11 port. We now had good access to the hiatus and were able to proceed with the surgery. The gastrohepatic ligament was located and divided with the LigaSure. Essentially all of the dissection was done either bluntly or with LigaSure dissection. We followed this pad 0 gastric ligament up to the right shanta. I then placed traction and reduced as much of the stomach as possible. I placed additional traction on the lesser omentum and used the LigaSure to divide and enter the mediastinum the hernia sac from the right shanta. This dissection was continued circumferentially up the right shanta and over the anterior midline. I then continued dissection of the hiatal hernia to the patient's left and caudally gently reducing the hernia and the stomach into the abdomen. This continued well and the esophagus came into view. I refocused in the anterior aspect of the hiatus and continued this process. I then looked more posteriorly and was able to dissect and expose the posterior shanta on the right side of the hiatus. With this completed, we then flipped the stomach so that the greater curvature was now anterior and we could place traction on the greater omentum. Again using the LigaSure, I divided the attachment of the greater omentum to the greater curvature of the stomach and entered the lesser sac. We then continued diss
[2022-01-11] MEDS: HYDROcodone/acetaminophen (*CRX) 5-325 MG TABLET 1 TAB PO ×2 (19:48→23:50)
[2022-01-11] MEDS: BENZOCAINE/MENTHOL (*BKC) 18 EA LOZENGE 1 LOZENGE PO (20:35)
--- NOTE | ~2022-01-12 | CT_ITS ---
EXAMINATION: CTA chest PE protocol DATE: 01/13/2022 14:53 INDICATION: Dyspnea. TECHNIQUE: Computed tomography angiography (CTA) of the chest was performed with 100 mL Omnipaque-350 intravenous contrast timed to evaluate the pulmonary arteries. Coronal maximum intensity projection 3D-reconstructions were created by the technologist. Automated exposure control and iterative reconst ruction technique were employed. The dose-length product was 433.98 mGy-cm. COMPARISON: CT abdomen and pelvis 07/27/2021 FINDINGS: There are small pleural effusions. There is mild scarring at the lung apices. There is mild atelectasis in the lungs with a dependent predominance. A calcified right lung nodule and calcified right hilar lymph nodes are consistent with old granulomatous disease. There are changes of fundoplic ation of the stomach. Pneumomediastinum is noted. There is soft tissue gas in the chest wall bilatera lly. There is fluid in the posterior mediastinum in the area of recent surgery. The heart size is nor mal. There are coronary artery calcifications. No pericardial effusion. There is no pulmonary embolus . There is mild chronic anterior wedging of multiple thoracic vertebral bodies. There is mild thoraci c spondylosis. There is upper thoracic dextroscoliosis and lower thoracic levoscoliosis. IMPRESSION: 1. No pulmonary embolus. 2. Small pleural effusions. 3. Surgical changes of recent fundoplication of the stomach including fluid in the posterior mediasti num. Reviewed, dictated and finalized at location A. IMPRESSION: 1. No pulmonary embolus. 2. Small pleural effusions. 3. Surgical changes of recent fundoplication of the stomach including fluid in the posterior mediastinum.
--- NOTE | ~2022-01-12 | XR_ITS ---
EXAMINATION: XR chest 2V DATE: 01/13/2022 12:29 INDICATION: Shortness of breath and hypoxia TECHNIQUE: PA and lateral views of the chest are obtained. COMPARISON: 12/30/2021 FINDINGS: There are minimal airspace opacities of the lung bases. Small pleural effusions are present . There is no pneumothorax. The large hiatal hernia appears to have been surgically reduced. There is severe thoracic spondylosis. There is a small amount of subcutaneous gas in the right chest and abdo lidia wall as well as in the left chest wall IMPRESSION: 1. Small pleural effusions. 2. Bibasilar airspace opacities, consistent with atelectasis versus pneumonia. 3. Gas in the subcutaneous tissues of the chest and right abdomen, likely postsurgical. Reviewed, dictated and finalized at location B. IMPRESSION: 1. Small pleural effusions. 2. Bibasilar airspace opacities, consistent with atelectasis versus pneumonia. 3. Gas in the subcutaneous tissues of the chest and right abdomen, likely posts urgical.
[2022-01-12 02:34] VITALS: BP 126/72; PULSE 66; RESP 16; TEMP 36.7; O2SAT 96
[2022-01-12 05:42] VITALS: BP 136/70; PULSE 60; RESP 16; TEMP 36.6; O2SAT 98
[2022-01-12 05:49] LABS: Hematocrit 30.7 % (37.0-47.0); Hemoglobin 9.7 g/dL (12.0-15.0); Mean Corpuscular HGB Conc 31.6 g/dl (32-36); Mean Corpuscular Hemoglobin 25.2 pg (26-34); Mean Corpuscular Volume 79.7 fl (80-100); Mean Platelet Volume 8.8 fl (7.4-10.4); Platelet Count Result 280 k/mm3 (150-375); Red Blood Count 3.85 M/mm3 (4.2-5.4); Red Cell Distribution Width 16.7 % (11.5-14.5); White Blood Count 6.8 K/mm3 (4.5-10.0)
[2022-01-12 06:00] LABS: Anion Gap 8 mmol/L (8-16); Blood Urea Nitrogen 13 mg/dL (7-17); Calcium 8.4 mg/dL (8.4-10.2); Carbon Dioxide 25 mmol/L (22-30); Chloride 104 mmol/L (98-107); Estimated CRCL calculation 65 ml/min; Estimated Glomerular Filt Rate > 60; Glucose 107 mg/dL (65-110); Potassium 3.9 mmol/L (3.4-5.0); Sodium 137 mmol/L (137-145)
[2022-01-12] MEDS: HYDROcodone/acetaminophen (*CRX) 5-325 MG TABLET 1 TAB PO ×4 (06:16→21:13)
--- NOTE | 2022-01-12 08:00 | WPDANESPN ---
Anes - Prog Note Post-Op Date/Time: 01/12/22 08:00 Cardiovascular status: normal Respiratory status: normal Airway patency: baseline Mental status: baseline Post-Op hydration status: normal Vital Signs: Last Vital Signs Temp 36.6 C 01/12/22 05:42 Pulse 60 01/12/22 05:42 Resp 16 01/12/22 05:42 BP 136/70 01/12/22 05:42 Pulse Ox 98 01/12/22 05:42 O2 Del Method Room Air 01/11/22 20:00 O2 Flow Rate 2 01/11/22 13:30 Pain Score (VAS): 5, sore throat I/O: Intake & Output 01/11/22 01/12/22 01/12/22 23:59 07:59 15:59 Intake Total 60 Output Total 300 150 Balance -240 -150 Laboratory Tests 01/12/22 05:36 01/12/22 05:36 01/12/22 01/12/22 05:36 05:36 WBC 6.8 RBC 3.85 L Hgb 9.7 L Hct 30.7 L MCV 79.7 L MCH 25.2 L MCHC 31.6 L RDW 16.7 H Plt Count 280 MPV 8.8 Sodium 137 Potassium 3.9 Chloride 104 Carbon Dioxide 25 Anion Gap 8 BUN 13 Creatinine 0.70 Estim Creat Clear Calc 65 Estimated GFR > 60 Glucose 107 Calcium 8.4 Post-procedural complaints: none Patient Feedback: Patient satisfied with anesthetic care.
[2022-01-12] MEDS: amLODIPine BESYLATE 5 MG TABLET 10 MG PO (08:25)
[2022-01-12] MEDS: ASPIRIN 81 MG ENTERIC TABLET PO (08:25)
[2022-01-12] MEDS: LOSARTAN POTASSIUM 100 MG TABLET PO (08:26)
[2022-01-12] MEDS: ENOXAPARIN 40 MG/0.4 ML SYRINGE SUB-Q (08:26)
[2022-01-12 13:06] VITALS: BP 108/61; PULSE 66; RESP 18; TEMP 37.1; O2SAT 95
[2022-01-12 14:29] VITALS: O2SAT 93
--- NOTE | 2022-01-12 17:55 | PM.PNGS ---
Progress Note: A&P Assessment and Plan (1) Paraesophageal hiatal hernia: Code(s): K44.9 - Diaphragmatic hernia without obstruction or gangrene Status: Chronic Assessment and Plan: Continues to have fair amount of pain and also some trouble swallowing. Will keep patient on liquids today. Assist with ambulation. Will need to stay in the hospital again today. Recheck again tomorrow. Recheck labs again tomorrow. Overall, doing okay. Subjective Subjective Date/Time Seen: 01/12/22 17:55 Post Op day: 1 Patient reports: still having pain, no flatus, no bowel movement, afebrile and other ( A lot of trouble swallowing, feels like it is in her throat not distal esophagus) Exam Const: General: comfortable, alert and awake Nutritional Appearance: average body habitus GI: Inspection: non-distended and incision ( dry and healing) GI Palp: Yes Firmness to palpation present (GI) and Yes Tenderness to palpation present (GI) ( diffusely, most in epigastrium, appears to be incisional.) Objective Data Vital Signs Vital Signs: Vital Signs - 24 hr 01/11/22 18:50 01/11/22 20:00 01/11/22 22:34 Temperature 36.6 C 36.7 C Pulse Rate 65 72 Respiratory Rate 20 16 Blood Pressure 124/63 153/73 H Pulse Oximetry 97 97 94 Oxygen Delivery Room Air 01/12/22 02:34 01/12/22 05:42 01/12/22 13:06 Temperature 36.7 C 36.6 C 37.1 C Pulse Rate 66 60 66 Respiratory Rate 16 16 18 Blood Pressure 126/72 136/70 108/61 Pulse Oximetry 96 98 95 Oxygen Delivery 01/12/22 14:29 Temperature Pulse Rate Respiratory Rate Blood Pressure Pulse Oximetry 93 Oxygen Delivery Room Air Intake/Output Intake/Output: Intake & Output 01/09/22 01/10/22 01/11/22 01/12/22 23:59 23:59 23:59 23:59 Intake Total 210 1400 Output Total 300 1550 Balance -90 -150 Meds/Results Medications: Active Medications Generic Name Dose Route Start Last Admin Trade Name Freq PRN Reason Stop Dose Admin Acetaminophen 500 mg 01/11/22 12:49 Acetaminophen 500 Mg Tablet PO Q6H PRN Mild Pain (1-3) or Fever Hydrocodone Bitart/Acetaminophen 1 tab 01/11/22 12:49 01/12/22 16:18 Hydrocodone/Acetaminophen (*Crx) 5-325 Mg Tablet PO 1 tab Q4H PRN Administration Pain Rated 4-6 Hydrocodone Bitart/Acetaminophen 1 tab 01/11/22 12:49 Hydrocodone/Acetaminophen (*Crx) 10-325 Mg Tablet PO Q6H PRN Pain Rated 7-10 Amlodipine Besylate 10 mg 01/12/22 09:00 01/12/22 08:25 Amlodipine Besylate 5 Mg Tablet PO 10 mg DAILY KRISHNA Administration Aspirin 81 mg 01/12/22 09:00 01/12/22 08:25 Aspirin 81 Mg Enteric Tablet PO 81 mg DAILY KRISHNA Administration Benzocaine 1 lozenge 01/11/22 19:51 01/11/22 20:35 Benzocaine/Menthol (*Bkc) 18 Ea Lozenge PO 1 lozenge PRN PRN Administration Sore Throat Diphenhydramine HCl 25 mg 01/11/22 12:49 Diphenhydramine Hcl Inj 50 Mg/Ml Vial IV PUSH Q6H PRN Itching Enoxaparin Sodium 40 mg 01/12/22 09:00 01/12/22 08:26 Enoxaparin 40 Mg/0.4 Ml Syringe SUB-Q 40 mg DAILY KRISHNA Administration Ibuprofen 800 mg in 200 mls @ 400 mls/hr 01/11/22 12:49 Caldolor 800 Mg/200 Ml IVPB Q6H PRN Pain Rated 1-3 Losartan Potassium 100 mg 01/12/22 09:00 01/12/22 08:26 Losartan Potassium 100 Mg Tablet PO 100 mg DAILY KRISHNA Administration Morphine Sulfate 2 mg 01/11/22 12:49 Morphine Sulfate (*Crx) 2 Mg/Ml Inj IV PUSH Q2H PRN Pain Rated 4-6 Morphine Sulfate 4 mg 01/11/22 12:49 Morphine Sulfate (*Crx) 4 Mg/Ml Inj IV PUSH Q2H PRN Pain Rated 7-10 Naloxone HCl 0.1 mg 01/11/22 12:49 Naloxone Hcl 0.4 Mg/Ml Vial IV PUSH Q2M PRN Opiate Reversal Ondansetron HCl 4 mg 01/11/22 12:49 Ondansetron Inj 4 Mg/2 Ml Vial IV PUSH Q4H PRN Nausea And Vomiting Labs Labs: Laboratory Results - last 24 hr 01/12/22 01/12/22 05:36 05:36 WBC 6.8 RBC 3.85 L
[2022-01-12] MEDS: ACETAMINOPHEN 500 MG TABLET PO (18:02)
[2022-01-12 20:00] VITALS: PULSE 62; RESP 18; O2SAT 92
[2022-01-12 20:03] VITALS: BP 137/59; PULSE 62; RESP 18; TEMP 36.6; O2SAT 92
[2022-01-13] MEDS: HYDROcodone/acetaminophen (*CRX) 5-325 MG TABLET 1 TAB PO ×4 (00:36→17:59)
[2022-01-13 05:50] LABS: Hematocrit 31.2 % (37.0-47.0); Hemoglobin 9.7 g/dL (12.0-15.0); Mean Corpuscular HGB Conc 31.1 g/dl (32-36); Mean Corpuscular Hemoglobin 25.5 pg (26-34); Mean Corpuscular Volume 81.9 fl (80-100); Mean Platelet Volume 9.2 fl (7.4-10.4); Platelet Count Result 290 k/mm3 (150-375); Red Blood Count 3.81 M/mm3 (4.2-5.4); Red Cell Distribution Width 17.1 % (11.5-14.5)
[2022-01-13 06:03] LABS: Anion Gap 8 mmol/L (8-16); Blood Urea Nitrogen 8 mg/dL (7-17); Calcium 8.3 mg/dL (8.4-10.2); Carbon Dioxide 25 mmol/L (22-30); Chloride 107 mmol/L (98-107); Estimated CRCL calculation 75 ml/min; Estimated Glomerular Filt Rate > 60; Glucose 99 mg/dL (65-110); Potassium 3.4 mmol/L (3.4-5.0); Sodium 140 mmol/L (137-145)
--- NOTE | 2022-01-13 08:02 | PM.PNGS ---
Progress Note: A&P Assessment and Plan (1) Paraesophageal hiatal hernia: Code(s): K44.9 - Diaphragmatic hernia without obstruction or gangrene Status: Chronic Assessment and Plan: noting some dysphagia. Explained to patient how important it is to chew food well, take small bites, eat very slowly. We had discussed this in the office but I re-emphasized this today. Having fairly typical postoperative discomfort which should improve. Wounds are healing well. Labs look good. (2) Hypoxemia requiring supplemental oxygen: Code(s): R09.02 - Hypoxemia; Z99.81 - Dependence on supplemental oxygen Status: Acute Assessment and Plan: Had to have oxygen placed early this morning. May have been associated with sleep but her I&O isalso positive. Will give a dose of Bumex today and also some potassium. Hopefully will resolve and possibly home tomorrow. Subjective Subjective Date/Time Seen: 01/13/22 08:02 Post Op day: 2 Patient reports: still having pain ( more epigastric pain, noticing some dysphagia.), no flatus, no bowel movement, shortness of breath ( Had to have oxygen placed early this morning. Better now and comfortable off oxygen.) and afebrile Review of Systems Review of Systems: All systems reviewed & are unremarkable except as noted in HPI and below ( HPI) Exam Const: General: cooperative, comfortable and awake Nutritional Appearance: average body habitus Orientation/consciousness: No confusion Resp: Effort & Inspection: normal respiratory effort, no cough and not labored Auscultation: crackles ( bases) and breath sounds absent on th left Cardio: Rate: regular rate Rhythm: regular rhythm GI: Inspection: no edema, non-distended and incision ( dry and healing well) GI Palp: Yes Soft to palpation and Yes Tenderness to palpation present (GI) ( epigastrium specifically) Auscultation: normal bowel sounds Objective Data Vital Signs Vital Signs: Vital Signs - 24 hr 01/12/22 13:06 01/12/22 14:29 01/12/22 20:03 Temperature 37.1 C 36.6 C Pulse Rate 66 62 Respiratory Rate 18 18 Blood Pressure 108/61 137/59 L Pulse Oximetry 95 93 92 Oxygen Delivery Room Air Oxygen Flow Rate 01/12/22 20:00 Temperature Pulse Rate 62 Respiratory Rate 18 Blood Pressure Pulse Oximetry 92 Oxygen Delivery Nasal Cannula Oxygen Flow Rate 2 Intake/Output Intake/Output: Intake & Output 01/10/22 01/11/22 01/12/22 01/13/22 23:59 23:59 23:59 23:59 Intake Total 210 1640 Output Total 300 1850 350 Balance -90 -210 -350 Meds/Results Medications: Active Medications Generic Name Dose Route Start Last Admin Trade Name Freq PRN Reason Stop Dose Admin Acetaminophen 500 mg 01/11/22 12:49 01/12/22 18:02 Acetaminophen 500 Mg Tablet PO 500 mg Q6H PRN Administration Mild Pain (1-3) or Fever Hydrocodone Bitart/Acetaminophen 1 tab 01/11/22 12:49 01/13/22 05:31 Hydrocodone/Acetaminophen (*Crx) 5-325 Mg Tablet PO 1 tab Q4H PRN Administration Pain Rated 4-6 Hydrocodone Bitart/Acetaminophen 1 tab 01/11/22 12:49 Hydrocodone/Acetaminophen (*Crx) 10-325 Mg Tablet PO Q6H PRN Pain Rated 7-10 Amlodipine Besylate 10 mg 01/12/22 09:00 01/12/22 08:25 Amlodipine Besylate 5 Mg Tablet PO 10 mg DAILY KRISHNA Administration Aspirin 81 mg 01/12/22 09:00 01/12/22 08:25 Aspirin 81 Mg Enteric Tablet PO 81 mg DAILY KRISHNA Administration Benzocaine 1 lozenge 01/11/22 19:51 01/11/22 20:35 Benzocaine/Menthol (*Bkc) 18 Ea Lozenge PO 1 lozenge PRN PRN Administration Sore Throat Diphenhydramine HCl 25 mg 01/11/22 12:49 Diphenhydramine Hcl Inj 50 Mg/Ml Vial IV PUSH Q6H PRN Itching Enoxaparin Sodium 40 mg 01/12/22 09:00 01/12/22 08:26 Enoxaparin 40 Mg/0.4 Ml Syringe SUB-Q 40 mg DAILY KRISHNA Administration Ibuprofen 800 mg in 200 mls @ 400 mls/hr 01/11/22 12:49 Caldolor 800 Mg/200 Ml IVPB Q6H P
[2022-01-13 08:20] VITALS: BP 121/74; PULSE 64; RESP 16; TEMP 36.6; O2SAT 100
[2022-01-13] MEDS: ASPIRIN 81 MG ENTERIC TABLET PO (09:12)
[2022-01-13] MEDS: amLODIPine BESYLATE 5 MG TABLET 10 MG PO (09:12)
[2022-01-13] MEDS: ENOXAPARIN 40 MG/0.4 ML SYRINGE SUB-Q (09:12)
[2022-01-13] MEDS: BUMETANIDE INJ 1 MG/4 ML VIAL 2 MG IV PUSH (09:12)
[2022-01-13] MEDS: POTASSIUM CHLORIDE 20 MEQ TABLET.ER 40 MEQ PO ×3 (09:13→17:21)
[2022-01-13] MEDS: LOSARTAN POTASSIUM 100 MG TABLET PO (09:13)
[2022-01-13 11:45] VITALS: O2SAT 90
[2022-01-13 12:00] VITALS: O2SAT 94
--- NOTE | 2022-01-13 12:09 | PC.NURSE ---
Dr Fontaine notified of pt on ra sat 90% and pt c/o a hard time taking deep breath. New orders received.
[2022-01-13 12:18] LABS: Alveolar/Arterial O2 Gradient 96.4 mmHg; Base Excess ABG -1.1 mEq/l (+/-2.0); Fractional Inspired Oxygen 28 %; HCO3 ABG 21.5 mEq/l (22.0-26.0); Oxygen Content ABG 15.3 %vol (16.0-22.0); Oxygen Saturation ABG 95.1 % (95.0-100.0); Oxyhemoglobin 93.7 % THb (90.0-100.0); PCO2 ABG 29.5 mmHg (35.0-45.0); PO2 ABG 68.4 mmHg (80.0-100.0); PO2 FiO2 Ratio Arterial Blood 2.44 %; Total Hemoglobin 11.6 g/dL (12.0-18.0); pH ABG 7.481 (7.350-7.450)
[2022-01-13 12:20] LABS: Device NASAL CANNULA; Modified Allen's Test Pass; Site Drawn LEFT RADIAL
--- NOTE | 2022-01-13 13:26 | PCNSR ---
On 01/13/22, the student,Jewel Cardona, provided care and completed [facility] on this patient. I have reviewed the student's documentation and agree with the findings.
[2022-01-13 14:53] VITALS: BP 132/65; PULSE 65; RESP 20; TEMP 37; O2SAT 95
[2022-01-13 19:42] VITALS: BP 133/71; PULSE 71; RESP 20; TEMP 36.4; O2SAT 95
[2022-01-13 20:00] VITALS: PULSE 71; RESP 20; O2SAT 95
[2022-01-14] MEDS: HYDROcodone/acetaminophen (*CRX) 5-325 MG TABLET 1 TAB PO ×3 (00:35→18:26)
[2022-01-14 04:26] VITALS: BP 124/56; PULSE 69; RESP 20; TEMP 37.1; O2SAT 94
[2022-01-14 05:56] LABS: Hematocrit 32.7 % (37.0-47.0); Hemoglobin 10.2 g/dL (12.0-15.0); Mean Corpuscular HGB Conc 31.2 g/dl (32-36); Mean Corpuscular Hemoglobin 25.9 pg (26-34); Mean Platelet Volume 9.2 fl (7.4-10.4); Platelet Count Result 309 k/mm3 (150-375); Red Blood Count 3.94 M/mm3 (4.2-5.4); Red Cell Distribution Width 16.9 % (11.5-14.5); White Blood Count 4.9 K/mm3 (4.5-10.0)
[2022-01-14 06:10] LABS: Anion Gap 11 mmol/L (8-16); Blood Urea Nitrogen 10 mg/dL (7-17); Calcium 8.6 mg/dL (8.4-10.2); Carbon Dioxide 23 mmol/L (22-30); Chloride 107 mmol/L (98-107); Estimated CRCL calculation 65 ml/min; Estimated Glomerular Filt Rate > 60; Glucose 93 mg/dL (65-110); Sodium 141 mmol/L (137-145)
[2022-01-14 08:30] VITALS: O2SAT 97
[2022-01-14] MEDS: POTASSIUM CHLORIDE 20 MEQ TABLET.ER 40 MEQ PO ×2 (08:32→17:13)
[2022-01-14] MEDS: amLODIPine BESYLATE 5 MG TABLET 10 MG PO (08:32)
[2022-01-14] MEDS: ASPIRIN 81 MG ENTERIC TABLET PO (08:33)
[2022-01-14] MEDS: ENOXAPARIN 40 MG/0.4 ML SYRINGE SUB-Q (08:33)
[2022-01-14] MEDS: LOSARTAN POTASSIUM 100 MG TABLET PO (08:33)
--- NOTE | 2022-01-14 09:37 | PM.PNGS ---
Progress Note: A&P Assessment and Plan (1) Hypoxemia requiring supplemental oxygen: Code(s): R09.02 - Hypoxemia; Z99.81 - Dependence on supplemental oxygen Status: Acute Assessment and Plan: Probably related to postsurgical atelectasis and discomfort. May be some mild excess fluid as well. Patient does feel better today. Workup is basically negative for a serious complication. Will try patient off oxygen today. If tolerates and continues to do well otherwise can go home tomorrow. 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 Not really having much trouble with low-fiber diet. Taking very little pain medicine. Seems to be doing well in this regard. Subjective Subjective Date/Time Seen: 01/14/22 09:37 Post Op day: 3 Patient reports: feels better, tolerating liquids well (Tolerating low-fiber diet), flatus, no bowel movement, shortness of breath and afebrile Interval history: Patient had to be on 2 L oxygen yesterday she was experiencing some epigastric discomfort and feelings of shortness of breath. She had a chest x-ray and ABGs which showed that her PO2 was 68 on 2 L. she was diuresed with Bumex. Chest x-ray showed some small pleural effusions possibly some atelectasis. CTA of the chest was negative for pulmonary embolism. She does feel better this morning. She still on oxygen but sats have been in the 94-95% range. She would feel comfortable trying to go off the oxygen for a while today. I&O for yesterday was -[id number] Review of Systems Review of Systems: All systems reviewed & are unremarkable except as noted in HPI and below (HPI and those items noted below) Constitutional: Constitutional: Reports as per HPI, Denies chills and Denies fever(s) Cardiovascular: Cardiovascular: Reports as per HPI, Denies chest pain at rest, Denies diaphoresis and Denies paroxysmal nocturnal dyspnea Respiratory: Respiratory: Reports as per HPI, Denies chest congestion, Denies cough, Reports dyspnea and Denies wheezing Gastrointestinal: Gastrointestinal: Reports as per HPI, Denies dyspepsia, Denies heartburn, Denies diarrhea and Denies nausea Integumentary/Breasts: Skin/Breast: Denies lesions and Denies rash Exam Const: General: comfortable and no acute distress; No confusion Orientation/consciousness: patient oriented x3 and No confusion Resp: Effort & Inspection: normal respiratory effort Auscultation: clear to auscultation bilaterally, no crackles, no rhonchi, no wheezes and diminished lung sounds on the right in the lower lung rivera Cardio: Jugular venous distension: no JVD Rate: regular rate Rhythm: regular rhythm GI: Inspection: non-distended and incision (All incisions dry and healing well) GI Palp: Yes Soft to palpation, Yes Tenderness to palpation present (GI) (Appropriate upper abdominal tenderness), No Guarding due to palpation present (GI) and No Rebound tenderness present Auscultation: normal bowel sounds Neuro: General: patient oriented x3, no focal motor deficits and No confusion Extrem: General: no calf tenderness and no edema Psych: Affect: normal affect Insight: Good insight present (Psych) Judgement: Good judgement present (Psych) Objective Data Vital Signs Vital Signs: Vital Signs - 24 hr 01/13/22 11:45 01/13/22 12:00 01/13/22 12:00 Temperature Pulse Rate Respiratory Rate Blood Pressure Pulse Oximetry 90 94 94 Oxygen Delivery Room Air Nasal Cannula Nasal Cannula Oxygen Flow Rate 2 2 01/13/22 14:53 01/13/22 19:42 01/13/22 20:00 Temperature 37.0 C 36.4 C Pulse Rate 65 71 71 Respiratory Rate 20 20 20 Blood Pressure 132/65 133/71 Pulse Oximetry 95 95 95 Oxygen Delivery Nasal Cannula Oxygen Flow Rate 2 01/14/22 04:26 Temperature 37.1 C Pulse Rate 69 Respiratory Rate 20 Blood Pressure 124/56 L Pulse Oximetry 94 Oxygen Del
[2022-01-14 13:40] VITALS: O2SAT 97
[2022-01-14 14:00] VITALS: BP 133/65; PULSE 66; RESP 18; TEMP 36.8; O2SAT 90
[2022-01-14 19:31] VITALS: BP 125/54; PULSE 63; RESP 18; TEMP 36.8; O2SAT 92
[2022-01-14 20:00] VITALS: PULSE 63; RESP 18; O2SAT 92
[2022-01-15 04:44] VITALS: BP 133/61; PULSE 58; RESP 18; TEMP 36.8; O2SAT 93
[2022-01-15] MEDS: HYDROcodone/acetaminophen (*CRX) 5-325 MG TABLET 1 TAB PO (06:36)
[2022-01-15] MEDS: ENOXAPARIN 40 MG/0.4 ML SYRINGE SUB-Q (08:36)
[2022-01-15] MEDS: LOSARTAN POTASSIUM 100 MG TABLET PO (08:37)
[2022-01-15] MEDS: amLODIPine BESYLATE 5 MG TABLET 10 MG PO (08:37)
[2022-01-15] MEDS: ASPIRIN 81 MG ENTERIC TABLET PO (08:37)
--- NOTE | 2022-01-15 09:48 | PM.DS ---
DS: Admitting Diagnosis Discharge Date 01/15/2022 Admitting Diagnosis paraesophageal hiatal hernia Essential hypertension DS: Discharge Diagnosis Discharge Diagnosis (1) Paraesophageal hiatal hernia: Code(s): K44.9 - Diaphragmatic hernia without obstruction or gangrene Status: Chronic Assessment and Plan: doing well status post hiatal hernia repair with Jacqueline fundoplication on 01/11/2022. Tolerating low-fiber diet. Minimal dysphagia with proper eating technique. (2) Hypoxemia requiring supplemental oxygen: Code(s): R09.02 - Hypoxemia; Z99.81 - Dependence on supplemental oxygen Status: Resolved Assessment and Plan: Patient noted to have some mild hypoxemia on postop day 1. She was actually requiring some oxygen on postop day 2. She was given Bumex for diuresis. Chest x-ray, ABGs and CTA of the chest were all performed. There was no evidence of pulmonary embolism, pneumonia or other significant finding. It was felt to be due to postsurgical hypo ventilation and postoperative discomfort. She was able to be discontinued from oxygen on 01/14/2022 and tolerated this well. She was ambulating and taking only some nonsteroidal anti-inflammatory agents for pain and was able to be discharged on 01/15. (3) Primary hypertension: Code(s): I10 - Essential (primary) hypertension Status: Chronic Assessment and Plan: Stable continue home meds DS: Summary Hospital Course Hospital Course: patient underwent laparoscopic Jacqueline fundoplication on 01/11/2022 for a very large paraesophageal hiatal hernia. The surgery went well. The patient had some mild dysphagia but altered her eating habits appropriately and this resolved. She was tolerating a low-fiber diet well without really any dysphagia. She did have some mild hypoxemia and this was evaluated as noted in the discharge diagnoses. It was felt to be due to postoperative pain and lack of mobility and normal of breathing. With some diuresis this resolved. Patient is in good condition now and able to be discharged on postop day 4. , 01/15/2022. Status at Discharge Functional status at discharge: independent ambulation Overall status at discharge: patient is progressing back to baseline Time Spent with Patient Time attestation: Total time spent providing and/or coordinating discharge services: Time spent: Less than 30 minutes DS: Data Data Completed and Pending Completed studies during hospitalization: Pending at discharge 01/11/22 09:32 Surgical [PTH] Routine Discharge Plan Discharge Attending physician on discharge: Ras Fontaine Discharging Clinician: Ras Fontaine Anticipated Discharge Date/Time: 01/15/22 09:54 Patient Disposition: Home, Self-Care Activity: may shower, no straining and as tolerated Diet: low fiber Wound Care Instructions: incision open to air Discharge Instructions: Ambulate 3-4 x per day and as tolerated. No lifting over 15-20lbs. May bathe or shower. Stairs are OK. May drive a car in 2 days. Stay on a low-fiber diet. Chew food well, eat very slowly. Patient Instructions: Antibiotic Form, Low Fiber Diet (DC) Stand Alone Forms: General Discharge Information Follow-up/Referrals: Ras Fontaine MD [Physician] - Keep Reg. Scheduled Appt. ( Patient to see Dr. Fontaine on January 26.) Discharge Medications: New hydrocodone-acetaminophen 5-325 mg tablet 1 - 2 tablet PO Q6H PRN (Reason: pain) Qty: 10 0RF Continued vitamin E (dl, acetate) 400 unit capsule 400 unit PO DAILY ascorbate calcium (vitamin C) 500 mg tablet 500 mg PO DAILY mecobalamin (vitamin B12) 5,000 mcg lozenge 5,000 mcg PO DAILY Rx Instructions: allow to dissolve in mouth OR may chew lightly before swallowing aspirin 81 mg tablet,delayed release (DR/EC) 81 mg PO DAILY glucosamine adams dipot-Boswellia 750-50 mg tablet 1,200 tablet PO 2XD
== END 2022-01-15 12:05 | disposition home or self-care (01) | DRG 328 ==
LOC: ANHSURGERY 16:29 → ANH3MED 16:29
PROVIDERS: Admitting Provider Surgery; PCP Family Medicine; Visit Provider Surgery
PROC: 0DV44ZZ Restriction of Esophagogastric Junction, Percutaneous Endoscopic Approach (ICD-10-PCS; CPT 43281; principal; 2022-01-11 07:30)
DX: K44.9 Diaphragmatic hernia without obstruction or gangrene (principal); R13.10 Dysphagia, unspecified; R09.02 Hypoxemia; I10 Essential (primary) hypertension; K21.9 Gastro-esophageal reflux disease without esophagitis; M17.12 Unilateral primary osteoarthritis, left knee; Z87.891 Personal history of nicotine dependence; Z79.82 Long term (current) use of aspirin
CPT/HCPCS: 36415; 36600; 71046; 71275; 80048; 82805; 85027; 88302; A9270; J0690; J1100; J1650; J1885; J2405; J2704; J2710; J3010; J7120; Q9967

== ENCOUNTER 2022-07-12 07:47 | Outpatient (CLI) | payer MEDICARE, SELFPAY ==
[2022-07-12 08:27] LABS: Alanine Aminotransferase 17 U/L (6-35); Albumin Level 4.6 g/dL (3.5-5.1); Alkaline Phosphatase 69 U/L (38-126); Anion Gap 7 mmol/L (8-16); Aspartate Amino Transferase 23 U/L (14-36); Bilirubin,Total 0.6 mg/dL (0.2-1.3); Blood Urea Nitrogen 15 mg/dL (7-17); Calcium 9.1 mg/dL (8.4-10.2); Carbon Dioxide 27 mmol/L (22-30); Chloride 104 mmol/L (98-107); Cholesterol 221 mg/dL (0-200); Estimated Glomerular Filt Rate > 60; Glucose 96 mg/dL (65-110); HDL Direct 81 mg/dL; Potassium 3.9 mmol/L (3.4-5.0); Sodium 138 mmol/L (137-145); Triglycerides 93 mg/dL (<150)
[2022-07-12 08:38] LABS: LDL Cholesterol Direct 104 mg/dL
[2022-07-12 09:26] LABS: Vitamin B12 > 1000.0 pg/mL (239-931)
[2022-07-12 10:11] LABS: Vitamin D 25 Hydroxy 53.3 ng/mL
== END 2022-07-12 07:48 | disposition home or self-care (01) ==
PROVIDERS: PCP Family Medicine; Visit Provider Physician Assistant Medical
DX: E78.2 Mixed hyperlipidemia (principal); E55.9 Vitamin D deficiency, unspecified; E53.8 Deficiency of other specified B group vitamins
CPT/HCPCS: 36415; 80053; 80061; 82306; 82607

== ENCOUNTER 2022-11-02 09:46 | Outpatient (CLI) | payer MEDICARE, SELFPAY ==
--- NOTE | ~2022-11-02 | XR_ITS ---
AP view of the pelvis and AP and lateral views of the left hip Clinical history: Pain Findings: No acute fracture or dislocation is seen. Osseous alignment is anatomic. Bilateral hip and SI joint spaces are preserved. Soft tissues are unremarkable. Impression: No significant abnormality is seen. Reviewed, dictated and finalized at [facility]. Impression: No significant abnormality is seen.
--- NOTE | ~2022-11-02 | XR_ITS ---
Lumbosacral Spine: AP, oblique, and lateral views Clinical History: Pain Findings: There is mild dextroscoliosis. The vertebral bodies and posterior elements are intact. Th e intervertebral disc spaces are preserved. There is mild facet arthropathy from L4 through S1. The s acroiliac joints are normally outlined. Impression: Mild facet arthropathy from L4 through S1. Reviewed, dictated and finalized at location . Impression: Mild facet arthropathy from L4 through S1.
== END 2022-11-02 09:47 | disposition home or self-care (01) ==
PROVIDERS: PCP Family Medicine; Visit Provider Family Medicine
DX: M47.816 Spondylosis without myelopathy or radiculopathy, lumbar region (principal); M79.652 Pain in left thigh; M12.88 Other specific arthropathies, not elsewhere classified, other specified site
CPT/HCPCS: 72110; 73502

== ENCOUNTER 2023-01-08 10:00 | Outpatient (RCR) | payer MEDICARE, SELFPAY ==
--- NOTE | 2022-12-08 12:11 | OPREHPOC ---
Outpatient Therapy Plan of Care This is a Multidisciplinary Plan of Care that may contain components documented by all disciplines (PT, OT, and ST.) PT Problem 1 PT Problem #1 Knowledge Deficit PT Goal 1 Goal Independent with HEP Target Visit 4 PT Problem 2 PT Problem #2 Pain PT Goal 1 Goal Report no pain greater than 1/10 with walking activity Target Visit 8 PT Problem 3 PT Problem #3 Impaired Strength PT Goal 1 Goal Improve tory hip abduction strength to 4+/5 to improve lateral stability with walking and ADLs Target Visit 8 PT Goal 2 Goal Improve tory hip flexion strength to 4+/5 to improve foot clearance Target Visit 8 PT Problem 4 PT Problem #4 Impaired Range of Motion PT Goal 1 Goal Improve L ankle DF ROM to 15 degrees to allow for terminal stance of gait PT Problem 5 PT Problem #5 Impaired Gait PT Goal 1 Goal Ambulate with even stride length bilaterally and correction of compensated Trendelenburg Target Visit 8
--- NOTE | 2022-12-08 12:11 | PTOPEVAL1 ---
Assessment and note entered by Antoni Gallegos, PT Evaluation Information Assessment Status Evaluation Diagnosis Left Iliotibial band syndrome, Left leg pain Onset August 2022 Subjective Information Reports that she had a history of popliteal cyst on back of knee. She bumped her hip on something and has since had aggravated lateral hip symptoms. Also has some back pain. Pain occasionally radiates to the knee. 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 She is taking NSAIDs regularly. Has not had any steroids. Reported Pain Level Pain Score 3: Self Report Assessment PT Clinical Summary Patient presents with signs and symptoms typical od chronic hip bursitis. She has compensated gait mechanics that are limiting L hip mobility and likely continuing to agitate soft tissues. Will benefit from skilled therapy to address deficits, restore gait pattern, and reduce pain with ADLs. Plan of Care Interventions Gait Training,Hot Pack/Cold Pack,Manual Therapy, Neuro Re-education,Patient/Caregiver Education, Therapeutic Activities,Therapeutic Exercise PT Services Indicated Yes Treatment Frequency and 2x/week for 4 weeks Duration These treatments will address the objective and functional deficits as defined above. The patient will be advanced safely and appropriately in order for the patient to progress towards his/her prior level of function. Additional exercises will be introduced and as well as a comprehensive home exercise program upon discharge, if needed, ?to ensure carryover of functional gains achieved in the clinic. This treatment plan has been reviewed and agreement upon by the patient.
--- NOTE | 2023-01-08 11:01 | OPREHPOC ---
Outpatient Therapy Plan of Care This is a Multidisciplinary Plan of Care that may contain components documented by all disciplines (PT, OT, and ST.) PT Problem 1 PT Problem #1 Knowledge Deficit PT Goal 1 Goal Independent with HEP Target Visit 4 Progress Met Comment Updated with strengthening. PT Problem 2 PT Problem #2 Pain PT Goal 1 Goal Report no pain greater than 1/10 with walking activity Target Visit 8 Progress Partially Met Comment Improved but not consistently below 1/10. PT Problem 3 PT Problem #3 Impaired Strength PT Goal 1 Goal Improve tory hip abduction strength to 4+/5 to improve lateral stability with walking and ADLs Target Visit 8 Progress Not Met Comment Mild progress but significant weakness still noted . Updated HEP to reflect. PT Goal 2 Goal Improve tory hip flexion strength to 4+/5 to improve foot clearance Target Visit 8 Progress Partially Met Comment Improved but not met PT Problem 4 PT Problem #4 Impaired Range of Motion PT Goal 1 Goal Improve L ankle DF ROM to 15 degrees to allow for terminal stance of gait Progress Met Comment ROM goals met PT Problem 5 PT Problem #5 Impaired Gait PT Goal 1 Goal Ambulate with even stride length bilaterally and correction of compensated Trendelenburg Target Visit 8 Progress Partially Met Comment Significant improvement made. Still minor deviations.
--- NOTE | 2023-01-08 11:01 | PTOPDC ---
Assessment and note entered by Antoni Gallegos, PT Discharge Information Assessment Status Discharge Diagnosis Left Iliotibial band syndrome, Left leg pain Onset August 2022 Subjective Information Reports that overall she feels she is walking a lot better when she is not hurting. She has been taking Ibuprofen for pain but hates taking it when she doesn't need to. Feels that her motion and gait have improved but she is still struggling with some cramping, tightness, and pain, but she no longer has any spasms which is huge for her. She plans to try strengthening at home on her own for a while to assess continued progress. Reported Pain Level Pain Score 1: Self Report Assessment PT Clinical Summary Patient has made significant strides in gait and LE ROM. She continues to show some consistent weakness which was thoroughly address in our conversations today. She was issued an updated HEP with emphasis on gluteal strengthening and LE stability. I feel patient has been very compliant and have no concerns with her working on strengthening at home per request. Should she not show improvement with strengthening further imaging may be appropriate. Plan of Care PT Services Indicated
== END 2023-01-08 14:06 | disposition home or self-care (01) ==
LOC: ANHPT 10:00
PROVIDERS: PCP Family Medicine; Visit Provider Family Medicine
DX: M76.32 Iliotibial band syndrome, left leg (principal)
CPT/HCPCS: 97014; 97110; 97116; 97140; 97161; 97530; G0283

== ENCOUNTER 2023-01-26 06:37 | Outpatient (CLI) | payer MEDICARE, SELFPAY ==
--- NOTE | ~2023-01-26 | MR_ITS ---
EXAMINATION: MR femur LT wo con DATE: 01/26/2023 07:32 INDICATION: Left thigh pain TECHNIQUE: Magnetic resonance imaging (MRI) of the left thigh was performed without intravenous contr ast. Sequences included axial, sagittal and coronal T1-weighted FSE and fluid sensitive FSE STIR. The contralateral right thigh is included on the coronal images. COMPARISON: None. FINDINGS: There is normal bone marrow signal throughout. No fracture, osteonecrosis or pathologic marrow replac ing process. Hip joint space appears relatively preserved with no joint effusion. The knee joint is n ot included within the field of imaging however there is a nonspecific small left knee joint effusion . Mild tendinopathy without tear at the left proximal hamstring tendons and of the left gluteus mediu s and minimus tendons. Small amount of fluid overlying the left greater trochanter consistent with mi ld trochanteric bursitis. There is also bilateral mild gluteus medius minimus bursitis. There is symm etric normal muscle bulk and signal throughout both thighs. The neurovascular structures in the left hilar unremarkable. No pathologically enlarged inguinal lymphadenopathy. IMPRESSION: 1. Mild left trochanteric and bilateral gluteus minimus bursitis. 2. Small left knee joint effusion. Reviewed, dictated and finalized at location A.
== END 2023-01-26 06:38 | disposition home or self-care (01) ==
PROVIDERS: PCP Family Medicine; Visit Provider Orthopaedic Surgery
DX: M79.652 Pain in left thigh (principal); M71.58 Other bursitis, not elsewhere classified, other site; M25.462 Effusion, left knee
CPT/HCPCS: 73721

== ENCOUNTER 2023-02-06 07:46 | Outpatient (CLI) | payer MEDICARE, SELFPAY ==
[2023-02-06 08:08] LABS: Basophils Percent Auto 0.9 % (0.2-1.2); Eosinophils Absolute Auto 0.1 K/mm3 (0-0.3); Eosinophils Percent Auto 1.2 % (0-4.4); Hematocrit 44.1 % (37.0-47.0); Hemoglobin 14.8 g/dL (12.0-15.0); Immature Granulocyte Absolute 0.01 K/mm3 (0.00-0.031); Immature Granulocyte Percent A 0.2 % (0-0.5); Lymphocytes Absolute Auto 1.89 K/mm3 (0.9-3.2); Lymphocytes Percent Auto 43.6 % (18.3-44.2); Mean Corpuscular HGB Conc 33.6 g/dl (32-36); Mean Corpuscular Hemoglobin 31.5 pg (26-34); Mean Corpuscular Volume 93.8 fl (80-100); Mean Platelet Volume 8.9 fl (7.4-10.4); Monocytes Absolute Auto 0.4 K/mm3 (0.1-0.6); Neutrophils Percent Auto 45.1 % (45.5-73.1); Platelet Count Result 264 k/mm3 (150-375); Red Cell Distribution Width 13.6 % (11.5-14.5); White Blood Count 4.3 K/mm3 (4.5-10.0)
[2023-02-06 08:24] LABS: Alanine Aminotransferase 17 U/L (6-35); Albumin Level 4.6 g/dL (3.5-5.1); Alkaline Phosphatase 61 U/L (38-126); Anion Gap 11 mmol/L (8-16); Aspartate Amino Transferase 20 U/L (14-36); Bilirubin,Total 0.9 mg/dL (0.2-1.3); Blood Urea Nitrogen 19 mg/dL (7-17); Calcium 9.8 mg/dL (8.4-10.2); Carbon Dioxide 26 mmol/L (22-30); Chloride 103 mmol/L (98-107); Cholesterol 245 mg/dL (0-200); Estimated Glomerular Filt Rate > 60; Glucose 97 mg/dL (65-110); Potassium 4.3 mmol/L (3.4-5.0); Sodium 140 mmol/L (137-145); Triglycerides 85 mg/dL (<150)
[2023-02-06 08:25] LABS: Iron 239 ug/dL (37-170)
[2023-02-06 08:34] LABS: LDL Cholesterol Direct 101 mg/dL
[2023-02-06 08:35] LABS: HDL Direct 115 mg/dL; Percent Iron Saturation 56 % (20-50)
== END 2023-02-06 07:47 | disposition home or self-care (01) ==
PROVIDERS: PCP Family Medicine; Visit Provider Physician Assistant Medical
DX: D64.9 Anemia, unspecified (principal); E78.2 Mixed hyperlipidemia
CPT/HCPCS: 36415; 80053; 80061; 82728; 83540; 83550; 85025

== ENCOUNTER 2023-04-06 08:15 | Outpatient (CLI) | payer MEDICARE, SELFPAY ==
[2023-04-06 09:48] LABS: Iron 172 ug/dL (37-170)
[2023-04-06 09:58] LABS: Percent Iron Saturation 41 % (20-50)
== END 2023-04-06 08:16 | disposition home or self-care (01) ==
LOC: ANHLAB 08:17
PROVIDERS: PCP Family Medicine; Visit Provider Physician Assistant Medical
DX: E83.119 Hemochromatosis, unspecified (principal)
CPT/HCPCS: 36415; 83540; 83550

== ENCOUNTER 2023-04-25 08:36 | Outpatient (CLI) | payer MEDICARE, SELFPAY ==
--- NOTE | ~2023-04-25 | MM_ITS ---
EXAMINATION: MM screening abilio BI w irene HISTORY: Screening TECHNIQUE: Craniocaudal and mediolateral oblique 3-D tomosynthesis images were obtained and synthetic 2-D images were generated. CAD analysis was submitted and interpreted. COMPARISON: Comparison to multiple prior studies sequentially, with oldest reviewed study dated 02/24. BREAST PARENCHYMAL COMPOSITION: There are scattered areas of fibroglandular density. FINDINGS: There is no evidence of suspicious mass, calcification, or architectural distortion to sugg est malignancy in either breast. There has been no suspicious interval change. IMPRESSION: 1. No mammographic evidence of malignancy. 2. Recommend routine screening mammography in one year. BI-RADS Category 1: Negative Reviewed, dictated and finalized at location A. [employer]
== END 2023-04-25 08:37 | disposition home or self-care (01) ==
LOC: ANHIMG 08:39
PROVIDERS: PCP Family Medicine; Visit Provider Physician Assistant Medical
DX: Z12.31 Encounter for screening mammogram for malignant neoplasm of breast (principal)
CPT/HCPCS: 77063; 77067

== ENCOUNTER 2023-07-12 07:39 | Outpatient (CLI) | payer MEDICARE, SELFPAY ==
--- NOTE | ~2023-07-12 | DEXA_ITS ---
Bone Density Report Name: MARY LOU SHAW Age: 73 Sex: Female Ethnicity: White Date of : 1950 Indication: osteopenia; height loss; history of glucocorticoids; Referring Provider: MADI RUBI Study: Bone densitometry was performed. Exam Date: July 12, 2023 Accession number: [id number] Bone Density: Region BMD T-score Z-score Classification AP Spine(L1-L4) 0.806 -2.2 0.0 Osteopenia Femoral Neck (Left) 0.651 -1.8 0.1 Osteopenia Total Hip (Left) 0.790 -1.2 0.4 Osteopenia Femoral Neck (Right) 0.749 -0.9 1.0 Normal Total Hip (Right) 0.902 -0.3 1.3 Normal Total Hip Mean 0.846 -0.8 0.9 Normal World Health Organization criteria for BMD impression classify patients as: Normal (T-score at or above -1.0), Osteopenia (T-score between -1.0 and -2.5), or Osteoporosis (T-score at or below -2.5). 10-year Fracture Risk(1): Major Osteoporotic Fracture 17% Hip Fracture 3.7% Reported Risk Factors: [place] (), Neck BMD=0.651, BMI=27.0, glucocorticoids (1) FRAX(R) Version 3.08. Fracture probability calculated for an untreated patient. Fracture probability may be lower if the patient has received treatment. Previous Exams: Region Exam Age BMD T-score BMD Change BMD Change Date g/cm2 vs Baseline vs Previous AP Spine (L1-L4) 07/12/2023 73 0.806 -2.2 -0.061 (-7.1%) -0.031 (-3.7%) 08/13/2020 70 0.837 -1.9 -0.030 (-3.5%) -0.002 (-0.2%) 07/17/2017 67 0.839 -1.9 -0.028 (-3.3%) -0.031 (-3.6%) 09/21/2014 64 0.870 -1.6 0.003 (0.3%)# 0.003 (0.3%)# 01/05/2012 61 0.867 -1.6 Total Hip(Left) 07/12/2023 73 0.790 -1.2 -0.079 (-9.1%) -0.042 (-5.1%) 08/13/2020 70 0.832 -0.9 -0.037 (-4.2%) -0.024 (-2.8%) 07/17/2017 67 0.856 -0.7 -0.013 (-1.5%) 0.018 (2.1%) 09/21/2014 64 0.838 -0.8 -0.030 (-3.5%) -0.030 (-3.5%) 01/05/2012 61 0.869 -0.6 Total Hip(Right) 07/12/2023 73 0.902 -0.3 0.057 (6.8%)* 0.007 (0.8%) 08/13/2020 70 0.895 -0.4 0.051 (6.0%)* 0.024 (2.8%)# 07/17/2017 67 0.871 -0.6 0.026 (3.1%)# 0.016 (1.9%) 09/21/2014 64 0.855 -0.7 0.010 (1.2%)# 0.010 (1.2%)# 01/05/2012 61 0.845 -0.8 *Denotes significance at 95% confidence level, LSC for AP Spine = 0.022 g/cm2, LSC for Total Hip = 0.027 g/cm2 # Denotes dissimilar scan types or analysis methods Clinical Information Provided by Patient: Has taken Glucocorticoids Has used the following medications: Vitamin D, Calcium Patient maximum height was
== END 2023-07-12 07:40 | disposition home or self-care (01) ==
PROVIDERS: PCP Family Medicine; Visit Provider Physician Assistant Medical
DX: Z78.0 Asymptomatic menopausal state (principal); M85.89 Other specified disorders of bone density and structure, multiple sites
CPT/HCPCS: 77080

== ENCOUNTER 2023-08-09 08:10 | Outpatient (CLI) | payer MEDICARE, SELFPAY ==
[2023-08-09 09:14] LABS: Basophils Absolute Auto 0.1 K/mm3 (0.0-0.1); Basophils Percent Auto 1.3 % (0.2-1.2); Eosinophils Absolute Auto 0.1 K/mm3 (0-0.3); Hematocrit 46.8 % (37.0-47.0); Hemoglobin 15.6 g/dL (12.0-15.0); Immature Granulocyte Absolute 0.01 K/mm3 (0.00-0.031); Immature Granulocyte Percent A 0.3 % (0-0.5); Immature Platelet Fraction Pct 3.7 % (0.9-11.2); Lymphocytes Absolute Auto 1.54 K/mm3 (0.9-3.2); Lymphocytes Percent Auto 41.4 % (18.3-44.2); Mean Corpuscular HGB Conc 33.3 g/dl (32-36); Mean Corpuscular Hemoglobin 31.8 pg (26-34); Mean Corpuscular Volume 95.5 fl (80-100); Mean Platelet Volume 10.4 fl (7.4-10.4); Monocytes Absolute Auto 0.4 K/mm3 (0.1-0.6); Neutrophils Absolute Auto 1.6 K/mm3 (1.3-6.7); Platelet Count Result 231 k/mm3 (150-375); Red Cell Distribution Width 13.3 % (11.5-14.5); White Blood Count 3.7 K/mm3 (4.5-10.0)
[2023-08-09 09:29] LABS: Alanine Aminotransferase 18 U/L (6-35); Albumin Level 4.4 g/dL (3.5-5.1); Alkaline Phosphatase 66 U/L (38-126); Anion Gap 9 mmol/L (4-12); Aspartate Amino Transferase 23 U/L (14-36); Bilirubin,Total 0.8 mg/dL (0.2-1.3); Blood Urea Nitrogen 13 mg/dL (7-17); Calcium 8.9 mg/dL (8.4-10.2); Carbon Dioxide 21 mmol/L (22-30); Chloride 107 mmol/L (98-107); Cholesterol 208 mg/dL (0-200); Estimated Glomerular Filt Rate > 60; Glucose 90 mg/dL (65-110); HDL Direct 91 mg/dL; Potassium 4.1 mmol/L (3.4-5.0); Sodium 137 mmol/L (137-145); Triglycerides 99 mg/dL (<150)
[2023-08-09 09:40] LABS: LDL Cholesterol Direct 97 mg/dL
[2023-08-09 09:47] LABS: Vitamin D 25 Hydroxy 51.6 ng/mL
== END 2023-08-09 08:11 | disposition home or self-care (01) ==
PROVIDERS: PCP Family Medicine; Visit Provider Physician Assistant Medical
DX: E55.9 Vitamin D deficiency, unspecified (principal); E78.2 Mixed hyperlipidemia
CPT/HCPCS: 36415; 80053; 80061; 82306; 85025; 85055

== ENCOUNTER 2023-09-26 08:24 | Outpatient (CLI) | payer MEDICARE, SELFPAY ==
--- NOTE | ~2023-09-26 | XR_ITS ---
EXAMINATION: XR hip LT 2V w AP pelvis DATE: 09/26/2023 08:51 INDICATION: Trochanteric bursitis, left hip. TECHNIQUE: An anteroposterior view of the pelvis and 2 views of left hip were obtained. COMPARISON: Pelvis and left hip radiographs 11/02/2022 FINDINGS: Bone alignment is normal. No fracture. There is mild lumbar spondylosis. There is mild oste oarthritis of the hips. IMPRESSION: 1. Mild osteoarthritis of the hips. Reviewed, dictated and finalized at location A.
--- NOTE | ~2023-09-26 | XR_ITS ---
EXAMINATION: XR knee LT min 4V DATE: 09/26/2023 08:50 INDICATION: Unilateral primary osteoarthritis, left knee. TECHNIQUE: 4 views of left knee including weight-bearing views were obtained. COMPARISON: None. FINDINGS: Bone alignment is normal. No fracture. There is mild tricompartmental osteoarthritis. There is a small knee joint effusion. IMPRESSION: 1. Mild left knee osteoarthritis. 2. Small left knee joint effusion. Reviewed, dictated and finalized at location A.
== END 2023-09-26 08:25 | disposition home or self-care (01) ==
LOC: ANHIMG 08:27
PROVIDERS: PCP Family Medicine; Visit Provider Orthopaedic Surgery
DX: M17.12 Unilateral primary osteoarthritis, left knee (principal); M70.62 Trochanteric bursitis, left hip; M16.0 Bilateral primary osteoarthritis of hip; M25.462 Effusion, left knee
CPT/HCPCS: 73502; 73564

== ENCOUNTER 2023-12-01 08:48 | Outpatient (CLI) | payer MEDICARE, SELFPAY ==
--- NOTE | ~2023-12-01 | CT_ITS ---
EXAMINATION: CT brain wo con DATE: 12/01/2023 09:05 INDICATION: Myoclonus. TECHNIQUE: Computed tomography (CT) of the head was performed without intravenous contrast. The mA wa s adjusted according to patient size. Iterative reconstruction technique was employed. The dose-lengt h product was 529.67 mGy-cm. COMPARISON: None FINDINGS: There is a prominent perivascular space in the left basal ganglia. There is no intracranial hemorrhage, acute infarction, or abnormal intracranial mass lesion. The ventricles are normal in siz e. There are likely changes of ocular lens replacement surgeries. The paranasal sinuses are clear. Th e mastoid air cells are normal. IMPRESSION: 1. Normal brain. Reviewed, dictated and finalized at location A. IMPRESSION: 1. Normal brain.
== END 2023-12-01 08:49 | disposition home or self-care (01) ==
LOC: ANHIMG 08:49
PROVIDERS: PCP Family Medicine; Visit Provider Physician Assistant Medical
DX: G25.3 Myoclonus (principal)
CPT/HCPCS: 70450

== ENCOUNTER 2024-02-18 07:22 | Outpatient (CLI) | payer MEDICARE, SELFPAY ==
[2024-02-18 08:09] LABS: Alanine Aminotransferase 14 U/L (6-35); Albumin Level 4.3 g/dL (3.5-5.1); Alkaline Phosphatase 62 U/L (38-126); Anion Gap 5 mmol/L (4-12); Aspartate Amino Transferase 23 U/L (14-36); Bilirubin,Total 0.9 mg/dL (0.2-1.3); Blood Urea Nitrogen 11 mg/dL (7-17); Carbon Dioxide 29 mmol/L (22-30); Chloride 105 mmol/L (98-107); Cholesterol 215 mg/dL (0-200); Estimated Glomerular Filt Rate > 60; Glucose 93 mg/dL (65-110); HDL Direct 101 mg/dL; Sodium 139 mmol/L (137-145); Triglycerides 115 mg/dL (<150)
[2024-02-18 08:16] LABS: Free T4 Free Thyroxine 1.07 ng/mL (0.78-2.19)
[2024-02-18 08:20] LABS: LDL Cholesterol Direct 84 mg/dL
== END 2024-02-18 07:23 | disposition home or self-care (01) ==
LOC: ANHLAB 07:24
PROVIDERS: PCP Family Medicine; Visit Provider Student in an Organized Health Care Education/Training Program
DX: E78.5 Hyperlipidemia, unspecified (principal); I10 Essential (primary) hypertension; R53.83 Other fatigue
CPT/HCPCS: 36415; 80053; 80061; 84439; 84443

== ENCOUNTER 2024-07-23 07:16 | Outpatient (CLI) | payer MEDICARE, SELFPAY ==
--- OUTSIDE RECORDS SUMMARY | 2024-07-23 07:19 | XMS_ITS | Referral Summary ---
Author Organization 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 15 Immunizations Immunization Administration Dates Next Due Influenza, Split 12/25/2009 Influenza, Trivalent, IM (MDV) 12/18/2012,2010 Social History Tobacco Use Types Packs/Day Years Used Date Smoking Tobacco: Former Smokeless Tobacco: Never Alcohol Use Standard Drinks/Week Comments Yes 0 (1 standard drink = 0.6 oz pur e alcohol) Personal Safety Answer Date Recorded Getting School Help Needed Not on file 06/08 Comments Unknown Sex and Gender Information Value Date Recorded Sex Assigned at Not on file Legal Sex Female 11:49 PM [employer]AND PLANNING [employer]NA[employer] Gender Identity Not on file Sexual Orientation Not on file Last Filed Vital Signs Vital Sign Reading Time Taken Comments Blood Pressure 142/80 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
--- OUTSIDE RECORDS SUMMARY | 2024-07-23 07:20 | XMS_ITS | Clinical Summary ---
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 15 Immunizations Immunization Administration Dates Next Due Influenza, Split 12/25/2009 Influenza, Trivalent, IM (MDV) 12/18/2012,2010 Surgical History Surgery Date Site/Laterality Comments TONSILLECTOMY Tonsillectomy Medical History Medical History Date Comments Ear problems Family History Medical History Relation Name Comments Drug abuse Brother 1 Drug addiction - (Added by TW Conv) Liver disease Brother 2 Family history of hepatic failure - (Added by TW Conv) Heart failure Father Family history of congestive heart failure - (Added by TW Conv) Heart failure Mother Family history of congestive heart failure - (Added by TW Conv) Lupus Sister Family history of systemic lupus erythematosus - (Added by TW Conv) Relation Name Status Comments Brother 1 Brother 2 Father Mother Sister Social History Tobacco Use Types Packs/Day Years [...] on file Legal Sex Female 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 Gender Identity Not on file Sexual Orientation Not on file Obstetrics History Last Filed Vital Signs Vital Sign Reading Time Taken Comments Blood Pressure 142/80 04/07/2019 10:36 AM LOGGING SHOVEL OPERATOR Pulse 68 10/23/2014 9:24 AM CDT Temperature - - Respiratory Rate - - Oxygen Saturation - - Inhaled Oxygen Concentration - - Weight 74.4 kg (164 lb) 04/07/2019 10:36 AM LOGGING SHOVEL OPERATOR Height 162.6 cm (5' 4 ) 04/07/2019 10:36 AM LOGGING SHOVEL OPERATOR Body Mass Index 28.15 04/07/2019 10:36 AM LOGGING SHOVEL OPERATOR Plan of Treatment Not on file Insurance [employer] SENIOR SU[employer]MENT MEDICARE Care Teams Foundry Molder Relationship Specialty Start Date End Date Luna Wolf, Kassi, MD PCP - General Family Practice 04/03/19
[2024-07-23 08:21] LABS: Alanine Aminotransferase 17 U/L (6-35); Albumin Level 4.5 g/dL (3.5-5.1); Alkaline Phosphatase 63 U/L (38-126); Anion Gap 9 mmol/L (4-12); Aspartate Amino Transferase 22 U/L (14-36); Bilirubin,Total 0.6 mg/dL (0.2-1.3); Blood Urea Nitrogen 16 mg/dL (7-17); Calcium 9.2 mg/dL (8.4-10.2); Carbon Dioxide 26 mmol/L (22-30); Chloride 105 mmol/L (98-107); Cholesterol 215 mg/dL (0-200); Estimated Glomerular Filt Rate > 60; Glucose 99 mg/dL (65-110); HDL Direct 86 mg/dL; Potassium 3.9 mmol/L (3.4-5.0); Sodium 140 mmol/L (137-145); Triglycerides 87 mg/dL (<150)
[2024-07-23 08:23] LABS: Creatine Kinase 48 U/L (30-135)
[2024-07-23 08:31] LABS: LDL Cholesterol Direct 91 mg/dL
[2024-07-23 08:37] LABS: Free T4 Free Thyroxine 1.24 ng/dL (0.78-2.19)
[2024-07-24 05:34] LABS: CRP, High Sensitivity 0.7 mg/L
[2024-07-24 12:18] LABS: Homocysteine 9.9 umol/L (<10.4)
[2024-07-24 12:33] LABS: Red Blood Cell Folate 540 ng/mL RBC (>280)
[2024-07-26 01:08] LABS: Methylmalonic Acid 116 nmol/L (69-390)
[2024-07-27 16:18] LABS: Vitamin D 1,25 (OH)2 Total 47 pg/mL (18-72); Vitamin D2 1,25 (OH)2 <8 pg/mL; Vitamin D3 1,25 (OH)2 47 pg/mL
== END 2024-07-23 07:17 | disposition home or self-care (01) ==
PROVIDERS: Student in an Organized Health Care Education/Training Program; PCP Family Medicine; Visit Provider Psychiatry & Neurology Neurology
DX: E78.5 Hyperlipidemia, unspecified (principal); I10 Essential (primary) hypertension; R53.83 Other fatigue; E55.9 Vitamin D deficiency, unspecified; M54.2 Cervicalgia; R25.2 Cramp and spasm
CPT/HCPCS: 36415; 80053; 80061; 82550; 82607; 82652; 82747; 83090; 83921; 84439; 84443; 86141

== ENCOUNTER 2024-07-23 08:26 | Outpatient (CLI) | payer MEDICARE, SELFPAY ==
--- NOTE | ~2024-07-23 | MM_ITS ---
EXAMINATION: MM screening abilio BI w irene HISTORY: Screening TECHNIQUE: Craniocaudal and mediolateral oblique 3-D tomosynthesis images were obtained and synthetic 2-D images were generated. CAD analysis was submitted and interpreted. COMPARISON: Comparison to multiple prior studies sequentially, with oldest reviewed study dated 05/14. BREAST PARENCHYMAL COMPOSITION: Not dense: There are scattered areas of fibroglandular density. FINDINGS: There is no evidence of suspicious mass, calcification, or architectural distortion to sugg est malignancy in either breast. There has been no suspicious interval change. IMPRESSION: 1. No mammographic evidence of malignancy. 2. Recommend routine screening mammography in one year. BI-RADS Category 1: Negative Reviewed, dictated and finalized at location A.
--- OUTSIDE RECORDS SUMMARY | 2024-07-23 08:38 | XMS_ITS | Referral Summary ---
Author Organization [facility] [place] [address] Address [address] [place] [address] Care Team Providers Care Public Relations Consultant Name Role Phone Kassi Jesus MD Primary Care Provider +1- [phone] Allergies Active Allergy Reactions Criticality Noted Date [...] on file Legal Sex Female 11:49 PM RATING EXAMINER Gender Identity Not on file Sexual Orientation Not on file Last Filed Vital Signs Vital Sign Reading Time Taken Comments Blood Pressure 142/80 04/07/2019 10:36 AM RATING EXAMINER Pulse 68 10/23/2014 9:24 AM CDT Temperature - - Respiratory Rate - - Oxygen Saturation - - Inhaled Oxygen Concentration - - Weight 74.4 kg (164 lb) 04/07/2019 10:36 AM RATING EXAMINER Height 162.6 cm (5' 4 ) 04/07/2019 10:36 AM RATING EXAMINER Body Mass Index 28.15 04/07/2019 10:36 AM RATING EXAMINER Plan of Treatment Not on file Insurance [employer] SENIOR [employer]MENT MEDICARE Care Teams Public Relations Consultant Relationship Specialty Start Date End Date Kassi Jesus MD PCP - General Family Practice 04/03/19
--- OUTSIDE RECORDS SUMMARY | 2024-07-23 08:38 | XMS_ITS | Clinical Summary ---
Author Organization [facility] [place] [address] Address [address] [place] [address] Care Team Providers Care Loss Prevention Manager Name Role Phone Kassi Jesus MD Primary Care Provider +1- [phone] Allergies Active Allergy Reactions Criticality Noted Date [...] on file Legal Sex Female 11:49 PM MENTAL TESTER Gender Identity Not on file Sexual Orientation Not on file Obstetrics History Last Filed Vital Signs Vital Sign Reading Time Taken Comments Blood Pressure 142/80 04/07/2019 10:36 AM MENTAL TESTER Pulse 68 10/23/2014 9:24 AM CDT Temperature - - Respiratory Rate - - Oxygen Saturation - - Inhaled Oxygen Concentration - - Weight 74.4 kg (164 lb) 04/07/2019 10:36 AM MENTAL TESTER Height 162.6 cm (5' 4 ) 04/07/2019 10:36 AM MENTAL TESTER Body Mass Index 28.15 04/07/2019 10:36 AM MENTAL TESTER Plan of Treatment Not on file Insurance [place] [address] MEDICARE Care Teams Loss Prevention Manager Relationship Specialty Start Date End Date Luna Wolf, Kassi, MD PCP - General Family Practice 04/03/19
== END 2024-07-23 08:27 | disposition home or self-care (01) ==
LOC: ANHIMG 08:29
PROVIDERS: PCP Family Medicine; Visit Provider Obstetrics & Gynecology
DX: Z12.31 Encounter for screening mammogram for malignant neoplasm of breast (principal); I10 Essential (primary) hypertension; E78.5 Hyperlipidemia, unspecified
CPT/HCPCS: 36415; 77063; 77067; 80053; 80061; 82550; 82607; 82652; 82747; 83090; 83921; 84439; 84443; 86141

== ENCOUNTER 2024-07-30 07:29 | Outpatient (CLI) | payer MEDICARE, SELFPAY ==
--- NOTE | ~2024-07-30 | MR_ITS ---
MRI of the cervical spine Clinical History: Cervicalgia Technique: Axial T2-weighted and gradient images, and sagittal T1-weighted, T2-weighted, and STIR allan ges were acquired. Findings: There is no fracture or subluxation of cervical spine. Vertebral bodies maintain normal hei ght and line. No bone marrow signal abnormality seen. At C2-C3, C3-C4, there is no disc bulge or herniation. No spinal canal stenosis, cord compression, or definite neural foraminal narrowing results. At C4-C5, there is mild degenerative disc narrowing. There is minimal disc osteophyte complex. There is probable mild right neural foraminal narrowing. Left neural foramen preserved. No canal stenosis. There is minimal flattening the ventral cord at the right side. At C5-C6, there is minimal disc osteophyte complex. There is probable mild bilateral neural foraminal narrowing. No canal stenosis or cord compression. At C6-C7, there is central disc protrusion without samir canal stenosis or cord compression. Probable mild bilateral neural foraminal narrowing. No abnormal signal seen in the spinal cord. Paravertebral soft tissues are unremarkable. Impression: Mild degenerative spondylosis overall, worst at C4-C5. Reviewed, dictated and finalized at [facility]. Impression: Mild degenerative spondylosis overall, worst at C4-C5.
--- OUTSIDE RECORDS SUMMARY | 2024-07-30 07:31 | XMS_ITS | Referral Summary ---
Author Organization [facility] [place] [address] Address [address] [place] [address] Care Team Providers Care Office Equipment Mechanic Name Role Phone Kassi Jesus MD Primary Care Provider +1- [phone] Allergies Active Allergy Reactions Criticality Noted Date [...] on file Legal Sex Female 11:49 PM SHRIMP PACKER Gender Identity Not on file Sexual Orientation Not on file Last Filed Vital Signs Vital Sign Reading Time Taken Comments Blood Pressure 142/80 04/07/2019 10:36 AM SHRIMP PACKER Pulse 68 10/23/2014 9:24 AM CDT Temperature - - Respiratory Rate - - Oxygen Saturation - - Inhaled Oxygen Concentration - - Weight 74.4 kg (164 lb) 04/07/2019 10:36 AM SHRIMP PACKER Height 162.6 cm (5' 4 ) 04/07/2019 10:36 AM SHRIMP PACKER Body Mass Index 28.15 04/07/2019 10:36 AM SHRIMP PACKER Plan of Treatment Not on file Insurance [employer] SENIOR SU[employer]LEMENT MEDICARE Care Teams Office Equipment Mechanic Relationship Specialty Start Date End Date Kassi Jesus MD PCP - General Family Practice 04/03/19
--- OUTSIDE RECORDS SUMMARY | 2024-07-30 07:31 | XMS_ITS | Clinical Summary ---
Author Organization [facility] [place] [address] Address [address] [place] [address] Care Team Providers Care Manager Media Relations Name Role Phone Kassi Jesus MD Primary Care Provider +1- [phone] Allergies Active Allergy Reactions Criticality Noted Date [...] on file Legal Sex Female 11:49 PM TIRE CARE MANAGER Gender Identity Not on file Sexual Orientation Not on file Obstetrics History Last Filed Vital Signs Vital Sign Reading Time Taken Comments Blood Pressure 142/80 04/07/2019 10:36 AM TIRE CARE MANAGER Pulse 68 10/23/2014 9:24 AM CDT Temperature - - Respiratory Rate - - Oxygen Saturation - - Inhaled Oxygen Concentration - - Weight 74.4 kg (164 lb) 04/07/2019 10:36 AM TIRE CARE MANAGER Height 162.6 cm (5' 4 ) 04/07/2019 10:36 AM TIRE CARE MANAGER Body Mass Index 28.15 04/07/2019 10:36 AM TIRE CARE MANAGER Plan of Treatment Not on file Insurance [employer] SENIOR [employer]LEMENT MEDICARE Care Teams Manager Media Relations Relationship Specialty Start Date End Date Luna Wolf, Kassi, MD PCP - General Family Practice 04/03/19
== END 2024-07-30 07:30 | disposition home or self-care (01) ==
PROVIDERS: PCP Family Medicine; Visit Provider Psychiatry & Neurology Neurology
DX: R25.2 Cramp and spasm (principal); M47.892 Other spondylosis, cervical region
CPT/HCPCS: 72141

== ENCOUNTER 2025-01-29 08:16 | Outpatient (CLI) | payer MEDICARE, SELFPAY ==
[2025-01-29 10:25] LABS: Hematocrit 42.9 % (37.0-47.0); Hemoglobin 14.5 g/dL (12.0-15.0); Immature Platelet Fraction Pct 3.4 % (0.9-11.2); Mean Corpuscular HGB Conc 33.8 g/dl (32-36); Mean Corpuscular Hemoglobin 33.0 pg (26-34); Mean Corpuscular Volume 97.5 fl (80-100); Platelet Count Result 158 k/mm3 (150-375); Red Blood Count 4.40 M/mm3 (4.2-5.4); White Blood Count 3.9 K/mm3 (4.5-10.0)
[2025-01-29 10:52] LABS: Alanine Aminotransferase 16 U/L (6-35); Albumin Level 4.2 g/dL (3.5-5.1); Alkaline Phosphatase 55 U/L (38-126); Anion Gap 6 mmol/L (4-12); Aspartate Amino Transferase 26 U/L (14-36); Bilirubin,Total 0.8 mg/dL (0.2-1.3); Blood Urea Nitrogen 13 mg/dL (7-17); Calcium 9.1 mg/dL (8.4-10.2); Carbon Dioxide 26 mmol/L (22-30); Chloride 104 mmol/L (98-107); Cholesterol 204 mg/dL (0-200); Estimated Glomerular Filt Rate > 60; Glucose 93 mg/dL (65-110); HDL Direct 83 mg/dL; Potassium 4.3 mmol/L (3.4-5.0); Sodium 136 mmol/L (137-145); Total Protein 6.8 g/dL (6.3-8.2); Triglycerides 106 mg/dL (<150)
[2025-01-29 10:53] LABS: Band Neutrophils Percent 0 % (0-6); Neutrophils Absolute Manual 1.87 K/mm3 (1.3-6.7); Neutrophils Percent Manual 48 % (46-73); Total Cells Counted 100
[2025-01-29 10:54] LABS: Anisocytosis 1+; Basophils Absolute Manual 0.07 K/mm3 (0.0-0.1); Basophils Percent Manual 2 % (0-1); Eosinophils Absolute Manual 0.11 K/mm3 (0.02-0.50); Eosinophils Percent Manual 3 % (0-4); Lymphocytes Absolute Manual 1.48 K/mm3 (1.1-4.5); Lymphocytes Percent Manual 38 % (18-44); Monocytes Absolute Manual 0.35 K/mm3 (0.1-0.90); Monocytes Percent Manual 9 % (3-9); Schistocytes None Seen; Smudge Cells PRESENT
--- OUTSIDE RECORDS SUMMARY | 2025-01-29 17:07 | XMS_ITS | Clinical Summary ---
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 SPRING REPAIRER Gender Identity Not on file Sexual Orientation Not on file Last Filed Vital Signs Vital Sign Reading Time Taken Comments Blood Pressure 142/80 04/07/2019 10:36 AM AUTOMOBILE SPRING REPAIRER Pulse 68 10/23/2014 9:24 AM CDT Temperature - - Respiratory Rate - - Oxygen Saturation - - Inhaled Oxygen Concentration - - Weight 74.4 kg (164 lb) 04/07/2019 10:36 AM AUTOMOBILE SPRING REPAIRER Height 162.6 cm (5' 4) 04/07/2019 10:36 AM AUTOMOBILE SPRING REPAIRER Body Mass Index 28.15 04/07/2019 10:36 AM AUTOMOBILE SPRING REPAIRER Plan of Treatment Not on file Insurance [employer] SENIOR SU[employer]LEMENT MEDICARE Care Teams Beet Topper Relationship Specialty Start Date End Date Kassi Jesus MD PCP - General Family Practice 04/03/19
== END 2025-01-29 08:17 | disposition home or self-care (01) ==
PROVIDERS: PCP Family Medicine Adolescent Medicine
DX: E78.2 Mixed hyperlipidemia (principal); R53.83 Other fatigue
CPT/HCPCS: 36415; 80053; 80061; 85025; 85055